=== PATIENT | male | born 1990 | race Two or more races ===

== ENCOUNTER 2021-01-21 18:46 | Inpatient (IN) | payer OTHER ==
[2021-01-21] MEDS ORDERED: NALOXONE (NARCAN) HCL 4 MG/0.1 ML SPRAY NS PRN (21:31)
[2021-01-21] MEDS ORDERED: ACETAMINOPHEN 325 MG TABLET (FP) PO PRN ×2 (21:31)
[2021-01-21] MEDS ORDERED: ONDANSETRON *ODT* 4 MG TABLET SL PRN (21:31)
[2021-01-21] MEDS ORDERED: NALOXONE HCL 0.4 MG/ML VIAL IM PRN (21:31)
[2021-01-21] MEDS ORDERED: P-EPHED 60MG/TRIPROLIDI 2.5MG TABLET PO PRN (21:31)
[2021-01-21] MEDS ORDERED: MAGNESIUM HYDROX 2400MG/30ML ORAL SUSPENSION 30 ML CUP PO PRN (21:31)
[2021-01-21] MEDS ORDERED: BISMUTH SUBSALICYLATE 524 MG/30 ML PO PRN (21:31)
[2021-01-21] MEDS ORDERED: guaiFENesin 200 MG/10 ML 10 ML UNIT-DOSE CUPS PO PRN (21:31)
[2021-01-21] MEDS ORDERED: IBUPROFEN 400 MG TABLET (FP) PO PRN (21:31)
[2021-01-21] MEDS ORDERED: MAG HYDROX/AL HYDROX/SIMETH 30 ML UNIT-DOSE CUP PO PRN (21:31)
[2021-01-21] MEDS ORDERED: MAGNESIUM CITRATE 300 ML BOTTLE PO PRN (21:31)
[2021-01-21] MEDS ORDERED: MENTHOL/PHENOL 1 EACH UD MM PRN (21:31)
[2021-01-21 23:12] VITALS: BMI 23.4
[2021-01-22] MEDS: MELATONIN 5 MG TABLETS PO SCH ×3 (05:14→22:50)
[2021-01-22] MEDS: THIAMINE HCL 100 MG TABLET (FP) PO SCH ×3 (05:15→22:50)
[2021-01-22] MEDS ORDERED: cloNIDine HCL 0.1 MG TABLET PO PRN (09:37)
[2021-01-22] MEDS ORDERED: METHADONE HCL 10 MG TABLET (FOR DETOX USE ONLY) PO ONE (10:00)
[2021-01-22] MEDS: NICOTINE 21 MG/24 HOURS TOPICAL PATCH TD SCH (10:24)
[2021-01-22] MEDS: PRENATAL VITAMINS W/ FOLIC ACID TABLET (FP) PO SCH (10:25)
[2021-01-22 13:37] LABS: HEMATOCRIT 36.6 % (35.4-49); HEMOGLOBIN 12.4 GM/dL (11.7-16.9); MCHC 33.8 g/dl (32.0-35.9); MEAN CELL VOLUME 91.8 fl (80-96); MEAN PLT VOLUME 8.2 fl (7.5-11.1); PLATELET COUNT 311 10^3/uL (134-434); RBC 3.99 M/mm3 (4.00-5.60); RDW 13.6 % (11.9-15.9); WHITE BLOOD COUNT 8.8 K/mm3 (4.0-10.0)
[2021-01-22 13:51] LABS: ALBUMIN 2.8 g/dl (3.4-5.0); BLOOD UREA NITROGEN 19.6 mg/dL (7-18); CREATININE 0.8 mg/dL (0.55-1.3)
[2021-01-22 13:53] LABS: TOT PROT 5.5 g/dl (6.4-8.2)
[2021-01-22 13:56] LABS: CALCIUM 7.9 mg/dL (8.5-10.1)
[2021-01-22 14:04] LABS: BILIRUBIN,TOTAL 0.2 mg/dL (0.2-1)
[2021-01-22] MEDS: diazePAM 5 MG TABLET PO PRN (22:53)
[2021-01-23] MEDS ORDERED: METHADONE HCL 5 MG TABLET (FOR DETOX USE ONLY) ONE (08:57)
[2021-01-23] MEDS ORDERED: METHADONE HCL 10 MG TABLET (FOR DETOX USE ONLY) ONE (08:58)
[2021-01-23] MEDS ORDERED: METHADONE (DETOX) 20 MG, METHADONE (DETOX) 5 MG PO ONE (10:00)
[2021-01-23] MEDS: NICOTINE 21 MG/24 HOURS TOPICAL PATCH TD SCH (10:05)
[2021-01-23] MEDS: PRENATAL VITAMINS W/ FOLIC ACID TABLET (FP) PO SCH (10:05)
[2021-01-23] MEDS: diazePAM 5 MG TABLET PO PRN ×3 (10:06→22:18)
[2021-01-23] MEDS: MELATONIN 5 MG TABLETS PO SCH (22:17)
[2021-01-23] MEDS: THIAMINE HCL 100 MG TABLET (FP) PO SCH (22:18)
[2021-01-23] MEDS: METHOCARBAMOL 500 MG TABLET PO PRN (22:18)
[2021-01-24] MEDS ORDERED: METHADONE HCL 10 MG TABLET (FOR DETOX USE ONLY) PO ONE (10:00)
[2021-01-24] MEDS: NICOTINE 21 MG/24 HOURS TOPICAL PATCH TD SCH (10:15)
[2021-01-24] MEDS: PRENATAL VITAMINS W/ FOLIC ACID TABLET (FP) PO SCH (10:16)
[2021-01-24] MEDS: diazePAM 5 MG TABLET PO PRN ×3 (10:18→22:20)
[2021-01-24] MEDS: METHOCARBAMOL 500 MG TABLET PO PRN ×2 (10:20→22:20)
[2021-01-24] MEDS: MELATONIN 5 MG TABLETS PO SCH (22:20)
[2021-01-24] MEDS: THIAMINE HCL 100 MG TABLET (FP) PO SCH (22:20)
[2021-01-25] MEDS: diazePAM 5 MG TABLET PO PRN ×3 (05:30→22:23)
[2021-01-25] MEDS ORDERED: METHADONE HCL 5 MG TABLET (FOR DETOX USE ONLY) ONE (08:52)
[2021-01-25] MEDS ORDERED: METHADONE HCL 10 MG TABLET (FOR DETOX USE ONLY) ONE (08:52)
[2021-01-25] MEDS ORDERED: METHADONE (DETOX) 10 MG, METHADONE (DETOX) 5 MG PO ONE (10:00)
[2021-01-25] MEDS: PRENATAL VITAMINS W/ FOLIC ACID TABLET (FP) PO SCH (10:13)
[2021-01-25] MEDS: NICOTINE 21 MG/24 HOURS TOPICAL PATCH TD SCH (10:16)
[2021-01-25] MEDS: NICOTINE POLACRILEX 2 MG GUM BUC PRN ×2 (10:18→14:27)
[2021-01-25] MEDS: METHOCARBAMOL 500 MG TABLET PO PRN (10:20)
[2021-01-25] MEDS: hydrOXYzine PAMOATE 50 MG CAPSULE (FP) PO PRN (10:20)
[2021-01-25] MEDS: CALCIUM 500MG/VIT-D 200 UNITS COMBO TABLET (FP) PO SCH ×2 (12:01→22:24)
[2021-01-25] MEDS: THIAMINE HCL 100 MG TABLET (FP) PO SCH (22:24)
[2021-01-25] MEDS: MELATONIN 5 MG TABLETS PO SCH (22:24)
[2021-01-26] MEDS: diazePAM 5 MG TABLET PO PRN ×2 (05:34→10:06)
[2021-01-26] MEDS ORDERED: METHADONE HCL 10 MG TABLET (FOR DETOX USE ONLY) PO ONE (10:00)
[2021-01-26] MEDS: PRENATAL VITAMINS W/ FOLIC ACID TABLET (FP) PO SCH (10:05)
[2021-01-26] MEDS: CALCIUM 500MG/VIT-D 200 UNITS COMBO TABLET (FP) PO SCH ×2 (10:05→22:19)
[2021-01-26] MEDS: NICOTINE 21 MG/24 HOURS TOPICAL PATCH TD SCH (10:05)
[2021-01-26] MEDS: NICOTINE POLACRILEX 2 MG GUM BUC PRN (10:05)
[2021-01-26] MEDS: hydrOXYzine PAMOATE 50 MG CAPSULE (FP) PO PRN ×2 (10:07→22:19)
[2021-01-26] MEDS: THIAMINE HCL 100 MG TABLET (FP) PO SCH (22:19)
[2021-01-26] MEDS: METHOCARBAMOL 500 MG TABLET PO PRN (22:19)
[2021-01-26] MEDS: MELATONIN 5 MG TABLETS PO SCH (22:19)
[2021-01-27] MEDS ORDERED: METHADONE HCL 5 MG TABLET (FOR DETOX USE ONLY) PO ONE (06:00)
[2021-01-27 09:13] VITALS: TEMP 98.1
[2021-01-27] MEDS: NICOTINE 21 MG/24 HOURS TOPICAL PATCH TD SCH (10:33)
[2021-01-27] MEDS: CALCIUM 500MG/VIT-D 200 UNITS COMBO TABLET (FP) PO SCH (10:33)
[2021-01-27] MEDS: PRENATAL VITAMINS W/ FOLIC ACID TABLET (FP) PO SCH (10:33)
[2021-01-27 12:52] VITALS: BP 133/80; PULSE 94
== END 2021-01-27 13:34 | disposition other institution (70) | DRG 773 ==
LOC: YASAS 18:46 → UNDOADMIN 01-22 02:06 → Y6N 01-22 02:06
PROVIDERS: ADMIT Allergy & Immunology; ATTEND Allergy & Immunology
PROC: HZ2ZZZZ Detoxification Services for Substance Abuse Treatment (ICD-10-PCS; principal; 2021-01-22)
DX: F11.23 Opioid dependence with withdrawal (principal); F14.20 Cocaine dependence, uncomplicated; F17.210 Nicotine dependence, cigarettes, uncomplicated; F19.24 Other psychoactive substance dependence with psychoactive substance-induced mood disorder; E83.51 Hypocalcemia; Z56.0 Unemployment, unspecified; Z59.0 Homelessness
CPT/HCPCS: 36415; 80053; 85027; 86780; 93005; 93010; C9803; U0003; U0005

== ENCOUNTER 2021-01-27 13:58 | Inpatient (IN) | payer OTHER ==
[2021-01-27] MEDS ORDERED: IBUPROFEN 400 MG TABLET (FP) PO PRN (15:08)
[2021-01-27] MEDS ORDERED: MAG HYDROX/AL HYDROX/SIMETH 30 ML UNIT-DOSE CUP PO PRN (15:08)
[2021-01-27] MEDS ORDERED: ACETAMINOPHEN 325 MG TABLET (FP) PO PRN (15:08)
[2021-01-27] MEDS ORDERED: MENTHOL/PHENOL 1 EACH UD MM PRN (15:08)
[2021-01-27] MEDS ORDERED: guaiFENesin 200 MG/10 ML 10 ML UNIT-DOSE CUPS PO PRN (15:08)
[2021-01-27] MEDS ORDERED: P-EPHED 60MG/TRIPROLIDI 2.5MG TABLET PO PRN (15:08)
[2021-01-27] MEDS ORDERED: MAGNESIUM CITRATE 300 ML BOTTLE PO PRN (15:08)
[2021-01-27] MEDS ORDERED: LOPERAMIDE HCL 2 MG CAPSULE PO PRN (15:08)
[2021-01-27] MEDS ORDERED: MAGNESIUM HYDROX 2400MG/30ML ORAL SUSPENSION 30 ML CUP PO PRN (15:08)
[2021-01-27] MEDS ORDERED: ONDANSETRON *ODT* 4 MG TABLET SL PRN (15:11)
[2021-01-27] MEDS: hydrOXYzine PAMOATE 50 MG CAPSULE (FP) PO PRN ×2 (15:36→21:09)
[2021-01-27] MEDS: METHOCARBAMOL 500 MG TABLET PO PRN ×2 (15:36→21:09)
[2021-01-27] MEDS: MELATONIN 5 MG TABLETS PO SCH (21:08)
[2021-01-27] MEDS: THIAMINE HCL 100 MG TABLET (FP) PO SCH (21:09)
[2021-01-28] MEDS: NICOTINE 7 MG/24 HOURS TOPICAL PATCH TD SCH (09:24)
[2021-01-28] MEDS: PRENATAL VITAMINS W/ FOLIC ACID TABLET (FP) PO SCH (09:24)
[2021-01-28] MEDS: METHOCARBAMOL 500 MG TABLET PO PRN ×2 (09:25→21:12)
[2021-01-28] MEDS: hydrOXYzine PAMOATE 50 MG CAPSULE (FP) PO PRN ×2 (09:25→21:12)
[2021-01-28] MEDS ORDERED: BUPRENORPHINE/NALOXONE 2 MG/0.5 MG FILM PACKET SL ONE (14:38)
[2021-01-28] MEDS: NICOTINE POLACRILEX 2 MG GUM BUC PRN (20:05)
[2021-01-28] MEDS: THIAMINE HCL 100 MG TABLET (FP) PO SCH (21:10)
[2021-01-28] MEDS: MELATONIN 5 MG TABLETS PO SCH (21:10)
[2021-01-29 06:31] VITALS: BP 117/83; PULSE 74; TEMP 97.3
[2021-01-29] MEDS: NICOTINE POLACRILEX 2 MG GUM BUC PRN ×3 (08:02→16:16)
[2021-01-29] MEDS: PRENATAL VITAMINS W/ FOLIC ACID TABLET (FP) PO SCH (09:27)
[2021-01-29] MEDS: NICOTINE 7 MG/24 HOURS TOPICAL PATCH TD SCH (09:27)
[2021-01-29] MEDS ORDERED: BUPRENORPHINE/NALOXONE 2 MG/0.5 MG FILM PACKET SL SCH (10:00)
[2021-01-29] MEDS ORDERED: BUPRENORPHINE/NALOXONE 2 MG/0.5 MG FILM PACKET SL ONE (10:45)
[2021-01-30] MEDS ORDERED: BUPRENORPHINE/NALOXONE 4 MG/1 MG FILM PACKET SL SCH (10:00)
== END 2021-01-29 19:45 | disposition left against medical advice (07) | DRG 770 ==
LOC: YASAS 13:58 → Y5N 13:59
PROVIDERS: ADMIT Allergy & Immunology; ATTEND Allergy & Immunology
PROC: HZ42ZZZ Group Counseling for Substance Abuse Treatment, Cognitive-Behavioral (ICD-10-PCS; principal; 2021-01-27)
DX: F11.20 Opioid dependence, uncomplicated (principal); Z59.0 Homelessness

== ENCOUNTER 2021-02-07 01:41 | Inpatient (IN) | payer OTHER ==
[2021-02-07 02:15] VITALS: BMI 24.6
[2021-02-07] MEDS ORDERED: MAGNESIUM CITRATE 300 ML BOTTLE PO PRN (02:41)
[2021-02-07] MEDS ORDERED: MAGNESIUM HYDROX 2400MG/30ML ORAL SUSPENSION 30 ML CUP PO PRN (02:41)
[2021-02-07] MEDS ORDERED: NICOTINE POLACRILEX 2 MG GUM BUC PRN (02:41)
[2021-02-07] MEDS ORDERED: ACETAMINOPHEN 325 MG TABLET (FP) PO PRN ×2 (02:41)
[2021-02-07] MEDS ORDERED: MENTHOL/PHENOL 1 EACH UD MM PRN (02:41)
[2021-02-07] MEDS ORDERED: MAG HYDROX/AL HYDROX/SIMETH 30 ML UNIT-DOSE CUP PO PRN (02:41)
[2021-02-07] MEDS ORDERED: IBUPROFEN 400 MG TABLET (FP) PO PRN (02:41)
[2021-02-07] MEDS ORDERED: ONDANSETRON *ODT* 4 MG TABLET SL PRN (02:41)
[2021-02-07] MEDS ORDERED: BISMUTH SUBSALICYLATE 524 MG/30 ML PO PRN (02:41)
[2021-02-07] MEDS: methaDONE HCL 10 MG TABLET (FOR DETOX USE ONLY) PO ONE ×2 (09:02→11:56)
[2021-02-07] MEDS: PRENATAL VITAMINS W/ FOLIC ACID TABLET (FP) PO SCH (11:56)
[2021-02-07 13:10] LABS: HEMATOCRIT 35.5 % (35.4-49); MCH 31.1 pg (25.7-33.7); MCHC 33.9 g/dl (32.0-35.9); MEAN CELL VOLUME 91.9 fl (80-96); MEAN PLT VOLUME 8.5 fl (7.5-11.1); PLATELET COUNT 306 10^3/uL (134-434); RBC 3.86 M/mm3 (4.00-5.60); RDW 13.9 % (11.9-15.9); WHITE BLOOD COUNT 6.7 K/mm3 (4.0-10.0)
[2021-02-07 13:37] LABS: BILIRUBIN,TOTAL 0.2 mg/dL (0.2-1); TOT PROT 6.1 g/dl (6.4-8.2)
[2021-02-07 13:42] LABS: CREATININE 1.1 mg/dL (0.55-1.3)
[2021-02-07 13:48] LABS: BLOOD UREA NITROGEN 21.4 mg/dL (7-18)
[2021-02-07 13:49] LABS: CALCIUM 8.2 mg/dL (8.5-10.1)
[2021-02-07 14:10] LABS: HIV INTERPRETATION NEGATIVE (NEGATIVE)
[2021-02-07] MEDS: THIAMINE HCL 100 MG TABLET (FP) PO SCH (22:49)
[2021-02-07] MEDS: cloNIDine HCL 0.1 MG TABLET PO PRN (22:50)
[2021-02-07] MEDS: MELATONIN 5 MG TABLETS PO SCH (22:50)
[2021-02-08] MEDS ORDERED: methaDONE HCL 10 MG TABLET (FOR DETOX USE ONLY) ONE (10:06)
[2021-02-08] MEDS: PRENATAL VITAMINS W/ FOLIC ACID TABLET (FP) PO SCH (10:07)
[2021-02-08] MEDS: NICOTINE POLACRILEX 4 MG GUM BUC PRN (14:56)
[2021-02-08] MEDS ORDERED: diazePAM 5 MG TABLET PO ONE (15:02)
[2021-02-08] MEDS: cloNIDine HCL 0.1 MG TABLET PO PRN (15:10)
[2021-02-08] MEDS: MELATONIN 5 MG TABLETS PO SCH (22:46)
[2021-02-08] MEDS: THIAMINE HCL 100 MG TABLET (FP) PO SCH (22:46)
[2021-02-09] MEDS: METHOCARBAMOL 500 MG TABLET PO PRN ×3 (01:49→22:14)
[2021-02-09] MEDS: cloNIDine HCL 0.1 MG TABLET PO PRN ×2 (01:49→22:14)
[2021-02-09] MEDS: NICOTINE POLACRILEX 4 MG GUM BUC PRN ×3 (07:58→17:33)
[2021-02-09] MEDS ORDERED: methaDONE HCL 10 MG TABLET (FOR DETOX USE ONLY) PO ONE (10:00)
[2021-02-09] MEDS: PRENATAL VITAMINS W/ FOLIC ACID TABLET (FP) PO SCH (10:00)
[2021-02-09] MEDS: THIAMINE HCL 100 MG TABLET (FP) PO SCH (22:13)
[2021-02-09] MEDS: MELATONIN 5 MG TABLETS PO SCH (22:14)
[2021-02-10] MEDS: NICOTINE POLACRILEX 4 MG GUM BUC PRN ×3 (05:50→22:31)
[2021-02-10] MEDS: METHOCARBAMOL 500 MG TABLET PO PRN ×2 (05:50→22:30)
[2021-02-10] MEDS ORDERED: methaDONE HCL 10 MG TABLET (FOR DETOX USE ONLY) ONE (09:27)
[2021-02-10] MEDS: PRENATAL VITAMINS W/ FOLIC ACID TABLET (FP) PO SCH (10:03)
[2021-02-10] MEDS: diazePAM 5 MG TABLET PO PRN ×2 (14:16→22:31)
[2021-02-10] MEDS: MELATONIN 5 MG TABLETS PO SCH (22:31)
[2021-02-10] MEDS: THIAMINE HCL 100 MG TABLET (FP) PO SCH (22:31)
[2021-02-11] MEDS: NICOTINE POLACRILEX 4 MG GUM BUC PRN ×3 (08:36→21:01)
[2021-02-11] MEDS ORDERED: methaDONE HCL 10 MG TABLET (FOR DETOX USE ONLY) PO ONE (10:00)
[2021-02-11] MEDS: PRENATAL VITAMINS W/ FOLIC ACID TABLET (FP) PO SCH (10:02)
[2021-02-11] MEDS: METHOCARBAMOL 500 MG TABLET PO PRN ×2 (10:03→22:07)
[2021-02-11] MEDS: THIAMINE HCL 100 MG TABLET (FP) PO SCH (22:05)
[2021-02-11] MEDS: MELATONIN 5 MG TABLETS PO SCH (22:06)
[2021-02-12] MEDS: NICOTINE POLACRILEX 4 MG GUM BUC PRN (06:49)
[2021-02-12] MEDS ORDERED: cloNIDine HCL 0.1 MG TABLET PO PRN (08:36)
[2021-02-12 09:15] VITALS: PULSE 87
[2021-02-12] MEDS: PRENATAL VITAMINS W/ FOLIC ACID TABLET (FP) PO SCH (10:03)
[2021-02-12] MEDS: METHOCARBAMOL 500 MG TABLET PO PRN (10:04)
[2021-02-12 13:44] VITALS: BP 148/73
[2021-02-12 17:37] VITALS: TEMP 98.1
== END 2021-02-12 18:35 | disposition home or self-care (01) | DRG 773 ==
LOC: YASAS 01:41 → Y6N 10:52
PROVIDERS: ADMIT Allergy & Immunology; ATTEND Allergy & Immunology
PROC: HZ2ZZZZ Detoxification Services for Substance Abuse Treatment (ICD-10-PCS; principal; 2021-02-07)
DX: F11.23 Opioid dependence with withdrawal (principal); F14.20 Cocaine dependence, uncomplicated; F17.210 Nicotine dependence, cigarettes, uncomplicated; R79.89 Other specified abnormal findings of blood chemistry
CPT/HCPCS: 36415; 80053; 85027; 86780; 87389; C9803; J0735; U0003; U0005

== ENCOUNTER 2021-02-26 16:56 | Inpatient (IN) | payer OTHER ==
[2021-02-27] MEDS ORDERED: BISMUTH SUBSALICYLATE 524 MG/30 ML PO PRN (02:03)
[2021-02-27] MEDS ORDERED: ACETAMINOPHEN 325 MG TABLET (FP) PO PRN ×2 (02:03)
[2021-02-27] MEDS ORDERED: IBUPROFEN 400 MG TABLET (FP) PO PRN (02:03)
[2021-02-27] MEDS ORDERED: ONDANSETRON *ODT* 4 MG TABLET SL PRN (02:03)
[2021-02-27] MEDS ORDERED: NICOTINE POLACRILEX 2 MG GUM BUC PRN (02:03)
[2021-02-27] MEDS ORDERED: MENTHOL/PHENOL 1 EACH UD MM PRN (02:03)
[2021-02-27] MEDS ORDERED: MAGNESIUM CITRATE 300 ML BOTTLE PO PRN (02:03)
[2021-02-27] MEDS ORDERED: MAG HYDROX/AL HYDROX/SIMETH 30 ML UNIT-DOSE CUP PO PRN (02:03)
[2021-02-27] MEDS ORDERED: MAGNESIUM HYDROX 2400MG/30ML ORAL SUSPENSION 30 ML CUP PO PRN (02:03)
[2021-02-27 03:11] VITALS: BMI 24.3
[2021-02-27] MEDS ORDERED: methaDONE HCL 10 MG TABLET (FOR DETOX USE ONLY) PO ONE (08:20)
[2021-02-27] MEDS: NICOTINE 21 MG/24 HOURS TOPICAL PATCH TD SCH (09:35)
[2021-02-27] MEDS ORDERED: methaDONE HCL 10 MG TABLET (FOR DETOX USE ONLY) ONE (09:43)
[2021-02-27] MEDS ORDERED: METHOCARBAMOL 500 MG TABLET ONE (09:43)
[2021-02-27] MEDS ORDERED: hydrOXYzine PAMOATE 25 MG CAPSULE (FP) PO ONE (09:44)
[2021-02-27] MEDS: METHOCARBAMOL 500 MG TABLET PO PRN (09:48)
[2021-02-27] MEDS: hydrOXYzine PAMOATE 25 MG CAPSULE (FP) PO PRN (09:48)
[2021-02-27] MEDS: PRENATAL VITAMINS W/ FOLIC ACID TABLET (FP) PO SCH (09:52)
[2021-02-27 10:50] LABS: HEMATOCRIT 36.8 % (35.4-49); HEMOGLOBIN 12.5 GM/dL (11.7-16.9); MCH 31.4 pg (25.7-33.7); MCHC 33.9 g/dl (32.0-35.9); MEAN CELL VOLUME 92.6 fl (80-96); PLATELET COUNT 283 10^3/uL (134-434); RBC 3.97 M/mm3 (4.00-5.60); RDW 13.1 % (11.9-15.9); WHITE BLOOD COUNT 6.7 K/mm3 (4.0-10.0)
[2021-02-27 11:12] LABS: BLOOD UREA NITROGEN 34.3 mg/dL (7-18)
[2021-02-27 11:13] LABS: CALCIUM 8.5 mg/dL (8.5-10.1)
[2021-02-27 11:14] LABS: ALBUMIN 3.2 g/dl (3.4-5.0)
[2021-02-27 11:17] LABS: CREATININE 1.3 mg/dL (0.55-1.3)
[2021-02-27 11:18] LABS: BILIRUBIN,TOTAL 0.2 mg/dL (0.2-1); TOT PROT 6.1 g/dl (6.4-8.2)
[2021-02-27] MEDS: NICOTINE POLACRILEX 4 MG GUM BUC PRN (14:48)
[2021-02-27] MEDS: THIAMINE HCL 100 MG TABLET (FP) PO SCH (23:55)
[2021-02-27] MEDS: MELATONIN 5 MG TABLETS PO SCH (23:55)
[2021-02-28] MEDS: cloNIDine HCL 0.1 MG TABLET PO PRN ×2 (07:38→22:18)
[2021-02-28] MEDS ORDERED: methaDONE HCL 10 MG TABLET (FOR DETOX USE ONLY) ONE (09:07)
[2021-02-28 10:14] LABS: BLOOD UREA NITROGEN 20.2 mg/dL (7-18)
[2021-02-28] MEDS: PRENATAL VITAMINS W/ FOLIC ACID TABLET (FP) PO SCH (10:24)
[2021-02-28] MEDS: NICOTINE 21 MG/24 HOURS TOPICAL PATCH TD SCH (10:24)
[2021-02-28] MEDS: METHOCARBAMOL 500 MG TABLET PO PRN ×2 (10:25→17:37)
[2021-02-28] MEDS: NICOTINE POLACRILEX 4 MG GUM BUC PRN ×2 (13:50→17:37)
[2021-02-28] MEDS: THIAMINE HCL 100 MG TABLET (FP) PO SCH (22:18)
[2021-02-28] MEDS: hydrOXYzine PAMOATE 25 MG CAPSULE (FP) PO PRN (22:18)
[2021-02-28] MEDS: MELATONIN 5 MG TABLETS PO SCH (22:18)
[2021-03-01] MEDS ORDERED: diazePAM 5 MG TABLET PO ONE (10:00)
[2021-03-01] MEDS ORDERED: methaDONE HCL 10 MG TABLET (FOR DETOX USE ONLY) PO ONE (10:00)
[2021-03-01] MEDS: NICOTINE 21 MG/24 HOURS TOPICAL PATCH TD SCH (10:02)
[2021-03-01] MEDS: METHOCARBAMOL 500 MG TABLET PO PRN (10:02)
[2021-03-01] MEDS: PRENATAL VITAMINS W/ FOLIC ACID TABLET (FP) PO SCH (10:02)
[2021-03-01] MEDS: THIAMINE HCL 100 MG TABLET (FP) PO SCH (22:24)
[2021-03-01] MEDS: hydrOXYzine PAMOATE 25 MG CAPSULE (FP) PO PRN (22:24)
[2021-03-01] MEDS: MELATONIN 5 MG TABLETS PO SCH (22:24)
[2021-03-01] MEDS: cloNIDine HCL 0.1 MG TABLET PO PRN (22:25)
[2021-03-02] MEDS: NICOTINE POLACRILEX 4 MG GUM BUC PRN ×3 (06:00→17:24)
[2021-03-02] MEDS ORDERED: methaDONE HCL 10 MG TABLET (FOR DETOX USE ONLY) ONE (08:46)
[2021-03-02] MEDS: NICOTINE 21 MG/24 HOURS TOPICAL PATCH TD SCH (10:03)
[2021-03-02] MEDS: PRENATAL VITAMINS W/ FOLIC ACID TABLET (FP) PO SCH (10:04)
[2021-03-02] MEDS: METHOCARBAMOL 500 MG TABLET PO PRN (10:04)
[2021-03-02] MEDS: METHYL SALICYLATE/MENTHOL OINT 30 GM TUBE TP SCH (22:04)
[2021-03-02] MEDS: MELATONIN 5 MG TABLETS PO SCH (22:04)
[2021-03-02] MEDS: hydrOXYzine PAMOATE 25 MG CAPSULE (FP) PO PRN (22:06)
[2021-03-02] MEDS: THIAMINE HCL 100 MG TABLET (FP) PO SCH (22:06)
[2021-03-03] MEDS ORDERED: methaDONE HCL 10 MG TABLET (FOR DETOX USE ONLY) PO ONE (10:00)
[2021-03-03] MEDS: METHOCARBAMOL 500 MG TABLET PO PRN ×2 (10:05→22:06)
[2021-03-03] MEDS: PRENATAL VITAMINS W/ FOLIC ACID TABLET (FP) PO SCH (10:05)
[2021-03-03] MEDS: hydrOXYzine PAMOATE 25 MG CAPSULE (FP) PO PRN ×2 (10:05→22:04)
[2021-03-03] MEDS: METHYL SALICYLATE/MENTHOL OINT 30 GM TUBE TP SCH ×2 (10:07→22:44)
[2021-03-03] MEDS: NICOTINE 21 MG/24 HOURS TOPICAL PATCH TD SCH (10:08)
[2021-03-03] MEDS: NICOTINE POLACRILEX 4 MG GUM BUC PRN ×3 (10:09→19:27)
[2021-03-03] MEDS ORDERED: diazePAM 5 MG TABLET PO ONE (14:00)
[2021-03-03] MEDS: NICOTINE 10 MG CARTRIDGE (INHALER) IH PRN (15:44)
[2021-03-03] MEDS: THIAMINE HCL 100 MG TABLET (FP) PO SCH (22:03)
[2021-03-03] MEDS: MELATONIN 5 MG TABLETS PO SCH (22:04)
[2021-03-04] MEDS: NICOTINE 10 MG CARTRIDGE (INHALER) IH PRN (05:54)
[2021-03-04 09:15] VITALS: BP 151/79; PULSE 80; TEMP 98.6
[2021-03-04] MEDS: METHYL SALICYLATE/MENTHOL OINT 30 GM TUBE TP SCH (11:18)
[2021-03-04] MEDS: NICOTINE 21 MG/24 HOURS TOPICAL PATCH TD SCH (11:18)
[2021-03-04] MEDS: PRENATAL VITAMINS W/ FOLIC ACID TABLET (FP) PO SCH (11:18)
== END 2021-03-04 11:15 | disposition home or self-care (01) | DRG 773 ==
LOC: YASAS 16:56 → Y6N 02-27 11:02
PROVIDERS: ADMIT Allergy & Immunology; ATTEND Allergy & Immunology
PROC: HZ2ZZZZ Detoxification Services for Substance Abuse Treatment (ICD-10-PCS; principal; 2021-02-27)
DX: F11.23 Opioid dependence with withdrawal (principal); F14.20 Cocaine dependence, uncomplicated; F17.213 Nicotine dependence, cigarettes, with withdrawal; F19.24 Other psychoactive substance dependence with psychoactive substance-induced mood disorder; R79.89 Other specified abnormal findings of blood chemistry
CPT/HCPCS: 36415; 80053; 82565; 84520; 85027; 86780; C9803; J0735; U0003; U0005

== ENCOUNTER 2021-04-26 12:20 | Inpatient (IN) | payer OTHER ==
[2021-04-26] MEDS ORDERED: MAG HYDROX/AL HYDROX/SIMETH 30 ML UNIT-DOSE CUP PO PRN (15:24)
[2021-04-26] MEDS ORDERED: MAGNESIUM CITRATE 300 ML BOTTLE PO PRN (15:24)
[2021-04-26] MEDS ORDERED: IBUPROFEN 400 MG TABLET (FP) PO PRN (15:24)
[2021-04-26] MEDS ORDERED: ACETAMINOPHEN 325 MG TABLET (FP) PO PRN ×2 (15:24)
[2021-04-26] MEDS ORDERED: ONDANSETRON *ODT* 4 MG TABLET SL PRN (15:24)
[2021-04-26] MEDS ORDERED: MENTHOL/PHENOL 1 EACH UD MM PRN (15:24)
[2021-04-26] MEDS ORDERED: MAGNESIUM HYDROX 2400MG/30ML ORAL SUSPENSION 30 ML CUP PO PRN (15:24)
[2021-04-26] MEDS ORDERED: methaDONE HCL 10 MG TABLET (FOR DETOX USE ONLY) PO ONE (15:24)
[2021-04-26] MEDS ORDERED: BISMUTH SUBSALICYLATE 524 MG/30 ML PO PRN (15:24)
[2021-04-26 16:45] VITALS: BMI 23.8
[2021-04-26] MEDS: hydrOXYzine PAMOATE 25 MG CAPSULE (FP) PO SCH ×2 (18:27→23:41)
[2021-04-26] MEDS: diazePAM 5 MG TABLET PO PRN (18:30)
[2021-04-26] MEDS: MELATONIN 5 MG TABLETS PO SCH (23:41)
[2021-04-26] MEDS: THIAMINE HCL 100 MG TABLET (FP) PO SCH (23:41)
[2021-04-27] MEDS: hydrOXYzine PAMOATE 25 MG CAPSULE (FP) PO SCH ×5 (06:02→22:45)
[2021-04-27] MEDS ORDERED: methaDONE HCL 10 MG TABLET (FOR DETOX USE ONLY) ONE (09:02)
[2021-04-27] MEDS: METHOCARBAMOL 500 MG TABLET PO PRN (11:05)
[2021-04-27] MEDS: diazePAM 5 MG TABLET PO PRN ×2 (11:05→22:45)
[2021-04-27] MEDS: cloNIDine HCL 0.1 MG TABLET PO PRN (11:08)
[2021-04-27] MEDS: PRENATAL VITAMINS W/ FOLIC ACID TABLET (FP) PO SCH (11:10)
[2021-04-27] MEDS: NICOTINE POLACRILEX 4 MG GUM BUC PRN ×2 (11:20→22:47)
[2021-04-27 11:57] LABS: HEMATOCRIT 42.7 % (35.4-49); HEMOGLOBIN 14.4 GM/dL (11.7-16.9); MCH 30.8 pg (25.7-33.7); MCHC 33.6 g/dl (32.0-35.9); MEAN CELL VOLUME 91.5 fl (80-96); MEAN PLT VOLUME 8.2 fl (7.5-11.1); PLATELET COUNT 402 10^3/uL (134-434); RBC 4.66 M/mm3 (4.00-5.60); WHITE BLOOD COUNT 12.9 K/mm3 (4.0-10.0)
[2021-04-27 11:59] LABS: CALCIUM 8.9 mg/dL (8.5-10.1)
[2021-04-27 12:00] LABS: BLOOD UREA NITROGEN 12.4 mg/dL (7-18)
[2021-04-27 12:03] LABS: CREATININE 0.9 mg/dL (0.55-1.3)
[2021-04-27 12:05] LABS: BILIRUBIN,TOTAL 0.6 mg/dL (0.2-1); TOT PROT 6.8 g/dl (6.4-8.2)
[2021-04-27] MEDS: THIAMINE HCL 100 MG TABLET (FP) PO SCH (22:45)
[2021-04-27] MEDS: MELATONIN 5 MG TABLETS PO SCH (22:45)
[2021-04-28] MEDS: hydrOXYzine PAMOATE 25 MG CAPSULE (FP) PO SCH ×5 (06:48→22:07)
[2021-04-28] MEDS ORDERED: methaDONE HCL 10 MG TABLET (FOR DETOX USE ONLY) PO ONE (10:00)
[2021-04-28] MEDS: cloNIDine HCL 0.1 MG TABLET PO PRN ×2 (10:24→22:10)
[2021-04-28] MEDS: METHOCARBAMOL 500 MG TABLET PO PRN (10:24)
[2021-04-28] MEDS: PRENATAL VITAMINS W/ FOLIC ACID TABLET (FP) PO SCH (10:24)
[2021-04-28] MEDS: diazePAM 5 MG TABLET PO PRN ×3 (10:25→22:07)
[2021-04-28] MEDS: NICOTINE POLACRILEX 4 MG GUM BUC PRN ×3 (10:29→15:49)
[2021-04-28] MEDS: MELATONIN 5 MG TABLETS PO SCH (22:07)
[2021-04-28] MEDS: THIAMINE HCL 100 MG TABLET (FP) PO SCH (22:07)
[2021-04-29] MEDS: hydrOXYzine PAMOATE 25 MG CAPSULE (FP) PO SCH ×5 (07:09→22:20)
[2021-04-29] MEDS ORDERED: methaDONE HCL 10 MG TABLET (FOR DETOX USE ONLY) ONE (08:54)
[2021-04-29] MEDS: PRENATAL VITAMINS W/ FOLIC ACID TABLET (FP) PO SCH (10:28)
[2021-04-29] MEDS: diazePAM 5 MG TABLET PO PRN ×2 (10:29→14:37)
[2021-04-29] MEDS: METHOCARBAMOL 500 MG TABLET PO PRN ×3 (10:31→23:38)
[2021-04-29] MEDS: NICOTINE 10 MG CARTRIDGE (INHALER) IH PRN ×3 (10:47→21:04)
[2021-04-29] MEDS: NICOTINE POLACRILEX 4 MG GUM BUC PRN ×2 (14:36→17:40)
[2021-04-29] MEDS: MELATONIN 5 MG TABLETS PO SCH (22:20)
[2021-04-29] MEDS: THIAMINE HCL 100 MG TABLET (FP) PO SCH (22:20)
[2021-04-30] MEDS: hydrOXYzine PAMOATE 25 MG CAPSULE (FP) PO SCH ×3 (07:12→13:17)
[2021-04-30 08:58] VITALS: TEMP 96.9
[2021-04-30] MEDS ORDERED: methaDONE HCL 10 MG TABLET (FOR DETOX USE ONLY) PO ONE (10:00)
[2021-04-30] MEDS: PRENATAL VITAMINS W/ FOLIC ACID TABLET (FP) PO SCH (10:16)
[2021-04-30] MEDS: NICOTINE POLACRILEX 4 MG GUM BUC PRN (10:17)
[2021-04-30] MEDS: METHOCARBAMOL 500 MG TABLET PO PRN (10:17)
[2021-04-30 10:32] LABS: HEMATOCRIT 38.1 % (35.4-49); HEMOGLOBIN 13.1 GM/dL (11.7-16.9); MCH 31.6 pg (25.7-33.7); MCHC 34.4 g/dl (32.0-35.9); MEAN PLT VOLUME 8.4 fl (7.5-11.1); PLATELET COUNT 346 10^3/uL (134-434); RBC 4.14 M/mm3 (4.00-5.60); RDW 12.8 % (11.9-15.9); WHITE BLOOD COUNT 8.6 K/mm3 (4.0-10.0)
[2021-04-30] MEDS: NICOTINE 10 MG CARTRIDGE (INHALER) IH PRN (10:40)
[2021-04-30] MEDS ORDERED: diazePAM 5 MG TABLET PO PRN (11:03)
[2021-04-30] MEDS ORDERED: cloNIDine HCL 0.1 MG TABLET PO PRN (12:12)
[2021-04-30 13:32] VITALS: BP 139/84; PULSE 97
== END 2021-04-30 14:12 | disposition home or self-care (01) | DRG 770 ==
LOC: YASAS 12:20 → Y3N 16:22
PROVIDERS: ADMIT Allergy & Immunology; ATTEND Allergy & Immunology
PROC: HZ2ZZZZ Detoxification Services for Substance Abuse Treatment (ICD-10-PCS; principal; 2021-04-26)
DX: F11.23 Opioid dependence with withdrawal (principal); F14.20 Cocaine dependence, uncomplicated; F17.213 Nicotine dependence, cigarettes, with withdrawal; Z63.4 Disappearance and death of family member
CPT/HCPCS: 36415; 80053; 82947; 85027; 86780; C9803; J0735; U0003; U0005

== ENCOUNTER 2021-05-11 22:26 | Inpatient (IN) | payer OTHER ==
[2021-05-11 22:43] VITALS: BMI 22.4
[2021-05-12] MEDS ORDERED: MENTHOL/PHENOL 1 EACH UD MM PRN (00:14)
[2021-05-12] MEDS ORDERED: MAG HYDROX/AL HYDROX/SIMETH 30 ML UNIT-DOSE CUP PO PRN (00:14)
[2021-05-12] MEDS ORDERED: ONDANSETRON *ODT* 4 MG TABLET SL PRN (00:14)
[2021-05-12] MEDS ORDERED: MAGNESIUM HYDROX 2400MG/30ML ORAL SUSPENSION 30 ML CUP PO PRN (00:14)
[2021-05-12] MEDS ORDERED: BISMUTH SUBSALICYLATE 524 MG/30 ML PO PRN (00:14)
[2021-05-12] MEDS ORDERED: MAGNESIUM CITRATE 300 ML BOTTLE PO PRN (00:14)
[2021-05-12] MEDS ORDERED: ACETAMINOPHEN 325 MG TABLET (FP) PO PRN ×2 (00:14)
[2021-05-12] MEDS ORDERED: IBUPROFEN 400 MG TABLET (FP) PO PRN (00:14)
[2021-05-12] MEDS ORDERED: methaDONE HCL 10 MG TABLET (FOR DETOX USE ONLY) PO ONE (00:21)
[2021-05-12] MEDS: cloNIDine HCL 0.1 MG TABLET PO PRN ×3 (01:24→22:16)
[2021-05-12] MEDS: METHOCARBAMOL 500 MG TABLET PO PRN ×2 (05:21→22:17)
[2021-05-12] MEDS: PRENATAL VITAMINS W/ FOLIC ACID TABLET (FP) PO SCH (10:27)
[2021-05-12] MEDS: diazePAM 5 MG TABLET PO PRN ×2 (10:28→18:56)
[2021-05-12] MEDS: NICOTINE POLACRILEX 2 MG GUM BUC PRN ×2 (10:30→22:24)
[2021-05-12 14:15] LABS: HEMATOCRIT 39.4 % (35.4-49); HEMOGLOBIN 13.3 GM/dL (11.7-16.9); MCHC 33.7 g/dl (32.0-35.9); MEAN CELL VOLUME 91.8 fl (80-96); MEAN PLT VOLUME 9.4 fl (7.5-11.1); PLATELET COUNT 300 10^3/uL (134-434); RBC 4.29 M/mm3 (4.00-5.60); RDW 13.1 % (11.9-15.9); WHITE BLOOD COUNT 7.8 K/mm3 (4.0-10.0)
[2021-05-12 15:27] LABS: HIV INTERPRETATION NEGATIVE (NEGATIVE)
[2021-05-12] MEDS: MELATONIN 5 MG TABLETS PO SCH (22:15)
[2021-05-12] MEDS: THIAMINE HCL 100 MG TABLET (FP) PO SCH (22:15)
[2021-05-13] MEDS ORDERED: methaDONE HCL 10 MG TABLET (FOR DETOX USE ONLY) ONE (08:18)
[2021-05-13] MEDS: diazePAM 5 MG TABLET PO PRN ×3 (08:28→22:06)
[2021-05-13] MEDS: cloNIDine HCL 0.1 MG TABLET PO PRN ×2 (08:29→22:06)
[2021-05-13] MEDS: PRENATAL VITAMINS W/ FOLIC ACID TABLET (FP) PO SCH (10:20)
[2021-05-13] MEDS: NICOTINE 10 MG CARTRIDGE (INHALER) IH PRN ×2 (10:31→22:04)
[2021-05-13 10:57] LABS: CALCIUM 8.1 mg/dL (8.5-10.1)
[2021-05-13 10:58] LABS: ALBUMIN 2.8 g/dl (3.4-5.0)
[2021-05-13 11:01] LABS: CREATININE 0.9 mg/dL (0.55-1.3)
[2021-05-13 11:03] LABS: BILIRUBIN,TOTAL 0.2 mg/dL (0.2-1); TOT PROT 6.4 g/dl (6.4-8.2)
[2021-05-13] MEDS: MELATONIN 5 MG TABLETS PO SCH (22:02)
[2021-05-13] MEDS: THIAMINE HCL 100 MG TABLET (FP) PO SCH (22:02)
[2021-05-13] MEDS: METHOCARBAMOL 500 MG TABLET PO PRN (22:06)
[2021-05-13] MEDS: NICOTINE POLACRILEX 2 MG GUM BUC PRN (22:10)
[2021-05-14] MEDS: diazePAM 5 MG TABLET PO PRN ×4 (08:35→22:04)
[2021-05-14] MEDS: NICOTINE POLACRILEX 2 MG GUM BUC PRN ×4 (08:37→22:22)
[2021-05-14] MEDS ORDERED: methaDONE HCL 10 MG TABLET (FOR DETOX USE ONLY) PO ONE (10:00)
[2021-05-14] MEDS: METHOCARBAMOL 500 MG TABLET PO PRN ×2 (10:06→22:04)
[2021-05-14] MEDS: PRENATAL VITAMINS W/ FOLIC ACID TABLET (FP) PO SCH (10:06)
[2021-05-14] MEDS: cloNIDine HCL 0.1 MG TABLET PO PRN ×3 (10:06→22:07)
[2021-05-14] MEDS: NICOTINE 10 MG CARTRIDGE (INHALER) IH PRN ×2 (10:08→16:33)
[2021-05-14 18:15] LABS: HEMATOCRIT 39.3 % (35.4-49); HEMOGLOBIN 13.2 GM/dL (11.7-16.9); MCH 30.5 pg (25.7-33.7); MCHC 33.6 g/dl (32.0-35.9); MEAN CELL VOLUME 90.6 fl (80-96); PLATELET COUNT 360 10^3/uL (134-434); RBC 4.34 M/mm3 (4.00-5.60); RDW 13.1 % (11.9-15.9); WHITE BLOOD COUNT 8.2 K/mm3 (4.0-10.0)
[2021-05-14] MEDS: THIAMINE HCL 100 MG TABLET (FP) PO SCH (22:04)
[2021-05-14] MEDS: MELATONIN 5 MG TABLETS PO SCH (22:04)
[2021-05-15] MEDS ORDERED: methaDONE HCL 10 MG TABLET (FOR DETOX USE ONLY) ONE (08:47)
[2021-05-15] MEDS: NICOTINE 10 MG CARTRIDGE (INHALER) IH PRN ×4 (09:04→22:09)
[2021-05-15] MEDS: PRENATAL VITAMINS W/ FOLIC ACID TABLET (FP) PO SCH (10:03)
[2021-05-15] MEDS: METHOCARBAMOL 500 MG TABLET PO PRN ×2 (10:03→22:08)
[2021-05-15] MEDS: NICOTINE POLACRILEX 2 MG GUM BUC PRN ×3 (10:05→20:08)
[2021-05-15] MEDS: cloNIDine HCL 0.1 MG TABLET PO PRN (17:17)
[2021-05-15] MEDS: THIAMINE HCL 100 MG TABLET (FP) PO SCH (22:07)
[2021-05-15] MEDS: MELATONIN 5 MG TABLETS PO SCH (22:07)
[2021-05-15] MEDS: traZODone HCL 50 MG TABLET (FP) PO SCH (22:07)
[2021-05-16] MEDS: NICOTINE POLACRILEX 2 MG GUM BUC PRN ×2 (08:45→13:10)
[2021-05-16] MEDS ORDERED: methaDONE HCL 10 MG TABLET (FOR DETOX USE ONLY) PO ONE (10:00)
[2021-05-16] MEDS: PRENATAL VITAMINS W/ FOLIC ACID TABLET (FP) PO SCH (10:04)
[2021-05-16] MEDS: NICOTINE 10 MG CARTRIDGE (INHALER) IH PRN ×2 (10:05→22:02)
[2021-05-16] MEDS: cloNIDine HCL 0.1 MG TABLET PO PRN (17:33)
[2021-05-16] MEDS: THIAMINE HCL 100 MG TABLET (FP) PO SCH (22:01)
[2021-05-16] MEDS: METHOCARBAMOL 500 MG TABLET PO PRN (22:01)
[2021-05-16] MEDS: MELATONIN 5 MG TABLETS PO SCH (22:01)
[2021-05-16] MEDS: traZODone HCL 50 MG TABLET (FP) PO SCH (22:01)
[2021-05-17] MEDS: METHOCARBAMOL 500 MG TABLET PO PRN (06:18)
[2021-05-17 09:42] VITALS: BP 129/72; PULSE 73; TEMP 97.3
== END 2021-05-17 09:33 | disposition home or self-care (01) | DRG 773 ==
LOC: YASAS 22:26 → Y3N 05-12 00:49
PROVIDERS: ADMIT Allergy & Immunology; ATTEND Allergy & Immunology
PROC: HZ2ZZZZ Detoxification Services for Substance Abuse Treatment (ICD-10-PCS; principal; 2021-05-12)
DX: F11.23 Opioid dependence with withdrawal (principal); F14.20 Cocaine dependence, uncomplicated; F17.210 Nicotine dependence, cigarettes, uncomplicated; F19.280 Other psychoactive substance dependence with psychoactive substance-induced anxiety disorder; F19.282 Other psychoactive substance dependence with psychoactive substance-induced sleep disorder; Z62.810 Personal history of physical and sexual abuse in childhood; Z91.410 Personal history of adult physical and sexual abuse; Z56.0 Unemployment, unspecified
CPT/HCPCS: 36415; 80053; 85027; 86780; 86803; 87389; C9803; J0735; U0003; U0005

== ENCOUNTER 2021-08-16 10:39 | Inpatient (IN) | payer OTHER ==
[2021-08-16] MEDS ORDERED: MAGNESIUM CITRATE 300 ML BOTTLE PO PRN (11:55)
[2021-08-16] MEDS ORDERED: BISMUTH SUBSALICYLATE 524 MG/30 ML PO PRN (11:55)
[2021-08-16] MEDS ORDERED: MAGNESIUM HYDROX 2400MG/30ML ORAL SUSPENSION 30 ML CUP PO PRN (11:55)
[2021-08-16] MEDS ORDERED: methaDONE HCL 10 MG TABLET (FOR DETOX USE ONLY) PO ONE (11:55)
[2021-08-16] MEDS ORDERED: MENTHOL/PHENOL 1 EACH UD MM PRN (11:55)
[2021-08-16] MEDS ORDERED: IBUPROFEN 400 MG TABLET (FP) PO PRN (11:55)
[2021-08-16] MEDS ORDERED: ONDANSETRON *ODT* 4 MG TABLET SL PRN (11:55)
[2021-08-16] MEDS ORDERED: ACETAMINOPHEN 325 MG TABLET (FP) PO PRN ×2 (11:55)
[2021-08-16] MEDS ORDERED: MAG HYDROX/AL HYDROX/SIMETH 30 ML UNIT-DOSE CUP PO PRN (11:55)
[2021-08-16] MEDS: METHOCARBAMOL 500 MG TABLET PO PRN (13:32)
[2021-08-16] MEDS: diazePAM 5 MG TABLET PO PRN (13:33)
[2021-08-16 13:50] VITALS: BMI 22.1
[2021-08-16] MEDS: NICOTINE 10 MG CARTRIDGE (INHALER) IH PRN (19:19)
[2021-08-16] MEDS: MELATONIN 5 MG TABLETS PO SCH (23:03)
[2021-08-16] MEDS: THIAMINE HCL 100 MG TABLET (FP) PO SCH (23:03)
[2021-08-16] MEDS: cloNIDine HCL 0.1 MG TABLET PO PRN (23:03)
[2021-08-17] MEDS ORDERED: methaDONE HCL 10 MG TABLET (FOR DETOX USE ONLY) ONE (09:09)
[2021-08-17] MEDS: diazePAM 5 MG TABLET PO PRN ×3 (10:57→21:29)
[2021-08-17] MEDS: PRENATAL VITAMINS W/ FOLIC ACID TABLET (FP) PO SCH (10:57)
[2021-08-17] MEDS: METHOCARBAMOL 500 MG TABLET PO PRN ×2 (10:57→21:26)
[2021-08-17] MEDS: NICOTINE POLACRILEX 2 MG GUM BUC PRN (13:54)
[2021-08-17] MEDS: THIAMINE HCL 100 MG TABLET (FP) PO SCH (21:26)
[2021-08-17] MEDS: MELATONIN 5 MG TABLETS PO SCH (21:26)
[2021-08-18] MEDS ORDERED: methaDONE HCL 10 MG TABLET (FOR DETOX USE ONLY) PO ONE (10:00)
[2021-08-18] MEDS: METHOCARBAMOL 500 MG TABLET PO PRN ×2 (10:08→21:53)
[2021-08-18] MEDS: hydrOXYzine PAMOATE 25 MG CAPSULE (FP) PO PRN (10:08)
[2021-08-18] MEDS: diazePAM 5 MG TABLET PO PRN ×2 (10:09→21:52)
[2021-08-18] MEDS: PRENATAL VITAMINS W/ FOLIC ACID TABLET (FP) PO SCH (10:10)
[2021-08-18] MEDS: NICOTINE 10 MG CARTRIDGE (INHALER) IH PRN (11:53)
[2021-08-18] MEDS: NICOTINE POLACRILEX 2 MG GUM BUC PRN ×2 (11:53→22:22)
[2021-08-18] MEDS: cloNIDine HCL 0.1 MG TABLET PO PRN (14:31)
[2021-08-18] MEDS ORDERED: diazePAM 5 MG TABLET PO ONE (16:00)
[2021-08-18] MEDS: THIAMINE HCL 100 MG TABLET (FP) PO SCH (21:52)
[2021-08-18] MEDS: MELATONIN 5 MG TABLETS PO SCH (21:52)
[2021-08-19] MEDS: diazePAM 5 MG TABLET PO PRN (06:10)
[2021-08-19] MEDS: NICOTINE POLACRILEX 2 MG GUM BUC PRN ×3 (06:11→14:09)
[2021-08-19] MEDS ORDERED: methaDONE HCL 10 MG TABLET (FOR DETOX USE ONLY) ONE (09:42)
[2021-08-19] MEDS: PRENATAL VITAMINS W/ FOLIC ACID TABLET (FP) PO SCH (10:03)
[2021-08-19] MEDS: hydrOXYzine PAMOATE 25 MG CAPSULE (FP) PO PRN ×2 (10:03→12:06)
[2021-08-19] MEDS: METHOCARBAMOL 500 MG TABLET PO PRN (10:03)
[2021-08-19] MEDS: NICOTINE 10 MG CARTRIDGE (INHALER) IH PRN ×2 (10:04→14:06)
[2021-08-19 13:27] LABS: HEMATOCRIT 43.6 % (35.4-49); HEMOGLOBIN 14.5 GM/dL (11.7-16.9); MCH 30.7 pg (25.7-33.7); MCHC 33.4 g/dl (32.0-35.9); MEAN CELL VOLUME 91.9 fl (80-96); MEAN PLT VOLUME 7.9 fl (7.5-11.1); PLATELET COUNT 313 10^3/uL (134-434); RBC 4.74 M/mm3 (4.00-5.60); RDW 13.7 % (11.9-15.9); WHITE BLOOD COUNT 7.8 K/mm3 (4.0-10.0)
[2021-08-19 13:38] LABS: ALBUMIN 3.1 g/dl (3.4-5.0); CALCIUM 9.2 mg/dL (8.5-10.1)
[2021-08-19 13:41] LABS: CREATININE 0.9 mg/dL (0.55-1.3); TOT PROT 6.6 g/dl (6.4-8.2)
[2021-08-19 13:42] LABS: BILIRUBIN,TOTAL 0.3 mg/dL (0.2-1)
[2021-08-19 18:51] VITALS: BP 153/104; PULSE 103; TEMP 97.6
[2021-08-20] MEDS ORDERED: methaDONE HCL 10 MG TABLET (FOR DETOX USE ONLY) PO ONE (10:00)
== END 2021-08-19 18:20 | disposition left against medical advice (07) | DRG 770 ==
LOC: YASAS 10:39 → Y6N 12:43
PROVIDERS: ADMIT Allergy & Immunology; ATTEND Allergy & Immunology
PROC: HZ2ZZZZ Detoxification Services for Substance Abuse Treatment (ICD-10-PCS; principal; 2021-08-16)
DX: F11.23 Opioid dependence with withdrawal (principal); F14.20 Cocaine dependence, uncomplicated; F17.210 Nicotine dependence, cigarettes, uncomplicated; U07.1 COVID-19; W19.XXXA Unspecified fall, initial encounter; Y92.238 Other place in hospital as the place of occurrence of the external cause
CPT/HCPCS: 36415; 80053; 85027; 86780; 93005; 93010; C9803; J0735; U0003; U0005

== ENCOUNTER 2021-09-08 09:04 | Inpatient (IN) | payer OTHER ==
[2021-09-08 09:51] VITALS: BMI 24.1
[2021-09-08] MEDS ORDERED: ACETAMINOPHEN 325 MG TABLET (FP) PO PRN ×2 (09:57)
[2021-09-08] MEDS ORDERED: MAGNESIUM HYDROX 2400MG/30ML ORAL SUSPENSION 30 ML CUP PO PRN (09:57)
[2021-09-08] MEDS ORDERED: MAG HYDROX/AL HYDROX/SIMETH 30 ML UNIT-DOSE CUP PO PRN (09:57)
[2021-09-08] MEDS ORDERED: MENTHOL/PHENOL 1 EACH UD MM PRN (09:57)
[2021-09-08] MEDS ORDERED: cloNIDine HCL 0.1 MG TABLET PO ONE (09:57)
[2021-09-08] MEDS ORDERED: MAGNESIUM CITRATE 300 ML BOTTLE PO PRN (09:57)
[2021-09-08] MEDS ORDERED: IBUPROFEN 400 MG TABLET (FP) PO PRN (09:57)
[2021-09-08] MEDS ORDERED: ONDANSETRON *ODT* 4 MG TABLET SL PRN (09:57)
[2021-09-08] MEDS ORDERED: BUPRENORPHINE HCL 150 MCG FILM BC ONE (10:22)
[2021-09-08] MEDS ORDERED: BUPRENORPHINE HCL 75 MCG FILM BC ONE (10:22)
[2021-09-08] MEDS ORDERED: BUPRENORPHINE HCL 150 MCG, BUPRENORPHINE HCL 75 MCG BC ONE (10:30)
[2021-09-08] MEDS ORDERED: cloNIDine HCL 0.1 MG TABLET ONE (10:30)
[2021-09-08] MEDS: PRENATAL VITAMINS W/ FOLIC ACID TABLET (FP) PO SCH (10:34)
[2021-09-08] MEDS: hydrOXYzine PAMOATE 25 MG CAPSULE (FP) PO SCH ×4 (10:34→22:57)
[2021-09-08] MEDS ORDERED: METHOCARBAMOL 500 MG TABLET ONE (10:36)
[2021-09-08] MEDS ORDERED: hydrOXYzine PAMOATE 25 MG CAPSULE (FP) PO ONE (10:36)
[2021-09-08] MEDS: NICOTINE 14 MG/24 HOURS TOPICAL PATCH TD SCH (10:39)
[2021-09-08] MEDS: METHOCARBAMOL 500 MG TABLET PO PRN ×2 (10:39→22:57)
[2021-09-08 14:01] LABS: HEMATOCRIT 39.7 % (35.4-49); HEMOGLOBIN 13.7 GM/dL (11.7-16.9); MCHC 34.4 g/dl (32.0-35.9); MEAN CELL VOLUME 90.1 fl (80-96); MEAN PLT VOLUME 7.8 fl (7.5-11.1); PLATELET COUNT 393 10^3/uL (134-434); RBC 4.41 M/mm3 (4.00-5.60); RDW 13.6 % (11.9-15.9); WHITE BLOOD COUNT 10.6 K/mm3 (4.0-10.0)
[2021-09-08] MEDS ORDERED: diazePAM 5 MG TABLET PO SCH (14:30)
[2021-09-08] MEDS: diazePAM 5 MG TABLET PO SCH ×3 (15:40→22:57)
[2021-09-08 18:05] LABS: ALBUMIN 3.7 g/dl (3.4-5.0); CALCIUM 9.6 mg/dL (8.5-10.1)
[2021-09-08] MEDS: BISMUTH SUBSALICYLATE 524 MG/30 ML PO PRN (18:09)
[2021-09-08] MEDS: cloNIDine HCL 0.1 MG TABLET PO PRN (18:09)
[2021-09-08 18:10] LABS: BILIRUBIN,TOTAL 0.2 mg/dL (0.2-1); TOT PROT 7.3 g/dl (6.4-8.2)
[2021-09-08 19:13] LABS: HIV INTERPRETATION NEGATIVE (NEGATIVE)
[2021-09-08] MEDS: MELATONIN 5 MG TABLETS PO SCH (22:57)
[2021-09-08] MEDS: THIAMINE HCL 100 MG TABLET (FP) PO SCH (22:57)
[2021-09-09] MEDS ORDERED: BUPRENORPHINE HCL 150 MCG FILM BC ONE (04:25)
[2021-09-09] MEDS ORDERED: BUPRENORPHINE HCL 75 MCG FILM BC ONE (04:25)
[2021-09-09] MEDS ORDERED: BUPRENORPHINE HCL 150 MCG, BUPRENORPHINE HCL 75 MCG BC SCH (06:00)
[2021-09-09] MEDS: hydrOXYzine PAMOATE 25 MG CAPSULE (FP) PO SCH ×5 (06:06→22:05)
[2021-09-09] MEDS: METHOCARBAMOL 500 MG TABLET PO PRN ×2 (06:06→22:05)
[2021-09-09] MEDS: diazePAM 5 MG TABLET PO SCH ×4 (06:09→22:05)
[2021-09-09] MEDS: cloNIDine HCL 0.1 MG TABLET PO PRN ×2 (06:10→22:05)
[2021-09-09] MEDS ORDERED: methaDONE HCL 10 MG TABLET (FOR DETOX USE ONLY) ONE (09:38)
[2021-09-09] MEDS ORDERED: methaDONE HCL 10 MG TABLET (FOR DETOX USE ONLY) PO ONE (10:00)
[2021-09-09] MEDS: NICOTINE 14 MG/24 HOURS TOPICAL PATCH TD SCH (10:19)
[2021-09-09] MEDS: PRENATAL VITAMINS W/ FOLIC ACID TABLET (FP) PO SCH (10:20)
[2021-09-09] MEDS: MELATONIN 5 MG TABLETS PO SCH (22:04)
[2021-09-09] MEDS: THIAMINE HCL 100 MG TABLET (FP) PO SCH (22:05)
[2021-09-10] MEDS: hydrOXYzine PAMOATE 25 MG CAPSULE (FP) PO SCH ×5 (05:23→22:01)
[2021-09-10] MEDS: diazePAM 5 MG TABLET PO SCH ×3 (05:23→22:01)
[2021-09-10] MEDS ORDERED: BUPRENORPHINE HCL 450 MCG FILM BC SCH (06:00)
[2021-09-10] MEDS: NICOTINE 10 MG CARTRIDGE (INHALER) IH PRN ×3 (08:43→22:00)
[2021-09-10] MEDS ORDERED: methaDONE HCL 10 MG TABLET (FOR DETOX USE ONLY) PO ONE (10:00)
[2021-09-10] MEDS: PRENATAL VITAMINS W/ FOLIC ACID TABLET (FP) PO SCH (10:02)
[2021-09-10] MEDS: NICOTINE 14 MG/24 HOURS TOPICAL PATCH TD SCH (10:03)
[2021-09-10] MEDS: diazePAM 5 MG TABLET PO PRN ×2 (10:07→18:33)
[2021-09-10 10:22] LABS: HEMOGLOBIN 13.3 GM/dL (11.7-16.9); MCH 30.5 pg (25.7-33.7); MCHC 33.4 g/dl (32.0-35.9); MEAN CELL VOLUME 91.3 fl (80-96); MEAN PLT VOLUME 8.1 fl (7.5-11.1); PLATELET COUNT 358 10^3/uL (134-434); RBC 4.38 M/mm3 (4.00-5.60); RDW 13.3 % (11.9-15.9); WHITE BLOOD COUNT 8.4 K/mm3 (4.0-10.0)
[2021-09-10 10:28] LABS: BLOOD UREA NITROGEN 11.9 mg/dL (7-18); CALCIUM 8.4 mg/dL (8.5-10.1)
[2021-09-10 10:31] LABS: CREATININE 0.8 mg/dL (0.55-1.3)
[2021-09-10 10:32] LABS: BILIRUBIN,TOTAL 0.3 mg/dL (0.2-1)
[2021-09-10 10:33] LABS: TOT PROT 6.2 g/dl (6.4-8.2)
[2021-09-10 10:39] LABS: ALBUMIN 2.9 g/dl (3.4-5.0)
[2021-09-10] MEDS: NICOTINE POLACRILEX 4 MG GUM BUC PRN ×2 (13:59→18:34)
[2021-09-10] MEDS: BISMUTH SUBSALICYLATE 524 MG/30 ML PO PRN (18:53)
[2021-09-10] MEDS: MELATONIN 5 MG TABLETS PO SCH (22:00)
[2021-09-10] MEDS: THIAMINE HCL 100 MG TABLET (FP) PO SCH (22:01)
[2021-09-10] MEDS: METHOCARBAMOL 500 MG TABLET PO PRN (22:01)
[2021-09-10] MEDS: cloNIDine HCL 0.1 MG TABLET PO PRN (22:01)
[2021-09-11] MEDS: diazePAM 5 MG TABLET PO SCH ×2 (05:22→17:54)
[2021-09-11] MEDS: hydrOXYzine PAMOATE 25 MG CAPSULE (FP) PO SCH ×5 (05:22→17:55)
[2021-09-11] MEDS ORDERED: BUPRENORPHINE/NALOXONE 4 MG/1 MG FILM PACKET SL SCH (06:00)
[2021-09-11] MEDS: NICOTINE POLACRILEX 4 MG GUM BUC PRN ×4 (08:47→17:55)
[2021-09-11] MEDS: NICOTINE 10 MG CARTRIDGE (INHALER) IH PRN ×2 (09:22→13:56)
[2021-09-11] MEDS: PRENATAL VITAMINS W/ FOLIC ACID TABLET (FP) PO SCH (09:59)
[2021-09-11] MEDS: diazePAM 5 MG TABLET PO PRN ×2 (10:00→13:55)
[2021-09-11] MEDS: METHOCARBAMOL 500 MG TABLET PO PRN (10:01)
[2021-09-11] MEDS: NICOTINE 14 MG/24 HOURS TOPICAL PATCH TD SCH (11:35)
[2021-09-11 17:28] VITALS: BP 107/60; PULSE 93; TEMP 97.8
[2021-09-12] MEDS ORDERED: diazePAM 5 MG TABLET PO ONE (06:00)
[2021-09-12] MEDS ORDERED: BUPRENORPHINE/NALOXONE 8 MG/2 MG FILM PACKET SL ONE (06:00)
[2021-09-12] MEDS ORDERED: methaDONE HCL 10 MG TABLET (FOR DETOX USE ONLY) PO ONE (10:00)
== END 2021-09-11 20:00 | disposition left against medical advice (07) | DRG 770 ==
LOC: YASAS 09:04 → Y3N 10:51
PROVIDERS: ADMIT Allergy & Immunology; ATTEND Allergy & Immunology
PROC: HZ2ZZZZ Detoxification Services for Substance Abuse Treatment (ICD-10-PCS; principal; 2021-09-08)
DX: F11.23 Opioid dependence with withdrawal (principal); F14.20 Cocaine dependence, uncomplicated; F13.20 Sedative, hypnotic or anxiolytic dependence, uncomplicated; F17.210 Nicotine dependence, cigarettes, uncomplicated; U07.1 COVID-19
CPT/HCPCS: 36415; 80053; 85027; 86780; 87389; C9803; J0735; U0003; U0005

== ENCOUNTER 2021-09-22 03:44 | Inpatient (IN) | payer OTHER ==
[2021-09-22 04:11] VITALS: BMI 23.6
[2021-09-22] MEDS ORDERED: P-EPHED 60MG/TRIPROLIDI 2.5MG TABLET PO PRN (04:45)
[2021-09-22] MEDS ORDERED: ACETAMINOPHEN 325 MG TABLET (FP) PO PRN ×2 (04:45)
[2021-09-22] MEDS ORDERED: MENTHOL/PHENOL 1 EACH UD MM PRN (04:45)
[2021-09-22] MEDS ORDERED: guaiFENesin 200 MG/10 ML 10 ML UNIT-DOSE CUPS PO PRN (04:45)
[2021-09-22] MEDS ORDERED: MAGNESIUM HYDROX 2400MG/30ML ORAL SUSPENSION 30 ML CUP PO PRN (04:45)
[2021-09-22] MEDS ORDERED: NALOXONE HCL 0.4 MG/ML VIAL IM PRN (04:45)
[2021-09-22] MEDS ORDERED: DICYCLOMINE HCL 10 MG CAPSULE PO PRN (04:45)
[2021-09-22] MEDS ORDERED: MAG HYDROX/AL HYDROX/SIMETH 30 ML UNIT-DOSE CUP PO PRN (04:45)
[2021-09-22] MEDS ORDERED: IBUPROFEN 400 MG TABLET (FP) PO PRN (04:45)
[2021-09-22] MEDS ORDERED: NALOXONE (NARCAN) HCL 4 MG/0.1 ML SPRAY NS PRN (04:45)
[2021-09-22] MEDS ORDERED: BISMUTH SUBSALICYLATE 524 MG/30 ML PO PRN (04:45)
[2021-09-22] MEDS ORDERED: ONDANSETRON *ODT* 4 MG TABLET SL PRN (04:45)
[2021-09-22] MEDS ORDERED: MAGNESIUM CITRATE 300 ML BOTTLE PO PRN (04:45)
[2021-09-22] MEDS ORDERED: LOPERAMIDE HCL 2 MG CAPSULE PO PRN (04:45)
[2021-09-22] MEDS ORDERED: NICOTINE 21 MG/24 HOURS TOPICAL PATCH TD SCH (10:00)
[2021-09-22] MEDS ORDERED: methaDONE HCL 10 MG TABLET (FOR DETOX USE ONLY) PO ONE (10:30)
[2021-09-22] MEDS: PRENATAL VITAMINS W/ FOLIC ACID TABLET (FP) PO SCH (10:34)
[2021-09-22] MEDS: diazePAM 5 MG TABLET PO PRN ×3 (10:34→22:05)
[2021-09-22] MEDS: METHOCARBAMOL 500 MG TABLET PO PRN ×2 (10:34→22:06)
[2021-09-22] MEDS: NICOTINE POLACRILEX 2 MG GUM BUC PRN ×2 (10:38→19:30)
[2021-09-22 16:45] LABS: CALCIUM 8.4 mg/dL (8.5-10.1)
[2021-09-22 16:46] LABS: BLOOD UREA NITROGEN 29.9 mg/dL (7-18)
[2021-09-22 16:49] LABS: CREATININE 1.2 mg/dL (0.55-1.3)
[2021-09-22 16:51] LABS: BILIRUBIN,TOTAL 0.5 mg/dL (0.2-1)
[2021-09-22] MEDS: NICOTINE 10 MG CARTRIDGE (INHALER) IH PRN (19:47)
[2021-09-22] MEDS: MELATONIN 5 MG TABLETS PO SCH (22:05)
[2021-09-22] MEDS: THIAMINE HCL 100 MG TABLET (FP) PO SCH (22:05)
[2021-09-22] MEDS: hydrOXYzine PAMOATE 25 MG CAPSULE (FP) PO PRN (22:05)
[2021-09-23] MEDS ORDERED: methaDONE HCL 10 MG TABLET (FOR DETOX USE ONLY) ONE (09:03)
[2021-09-23 09:22] LABS: HEMATOCRIT 36.6 % (35.4-49); HEMOGLOBIN 12.6 GM/dL (11.7-16.9); MCH 31.3 pg (25.7-33.7); MCHC 34.3 g/dl (32.0-35.9); MEAN CELL VOLUME 91.1 fl (80-96); MEAN PLT VOLUME 7.9 fl (7.5-11.1); PLATELET COUNT 328 10^3/uL (134-434); RBC 4.02 M/mm3 (4.00-5.60); RDW 13.6 % (11.9-15.9); WHITE BLOOD COUNT 7.9 K/mm3 (4.0-10.0)
[2021-09-23 09:33] LABS: ALBUMIN 2.6 g/dl (3.4-5.0); BLOOD UREA NITROGEN 19.2 mg/dL (7-18); CALCIUM 8.2 mg/dL (8.5-10.1)
[2021-09-23 09:37] LABS: CREATININE 0.8 mg/dL (0.55-1.3)
[2021-09-23 09:38] LABS: BILIRUBIN,TOTAL 0.6 mg/dL (0.2-1); TOT PROT 5.5 g/dl (6.4-8.2)
[2021-09-23] MEDS: PRENATAL VITAMINS W/ FOLIC ACID TABLET (FP) PO SCH (10:14)
[2021-09-23] MEDS: diazePAM 5 MG TABLET PO PRN ×3 (10:16→22:38)
[2021-09-23] MEDS: METHOCARBAMOL 500 MG TABLET PO PRN ×2 (10:17→22:37)
[2021-09-23] MEDS: NICOTINE 10 MG CARTRIDGE (INHALER) IH PRN ×2 (10:24→15:22)
[2021-09-23] MEDS: NICOTINE POLACRILEX 2 MG GUM BUC PRN ×2 (12:39→18:02)
[2021-09-23] MEDS: cloNIDine HCL 0.1 MG TABLET PO PRN (19:43)
[2021-09-23] MEDS: MELATONIN 5 MG TABLETS PO SCH (22:36)
[2021-09-23] MEDS: THIAMINE HCL 100 MG TABLET (FP) PO SCH (22:36)
[2021-09-23] MEDS: hydrOXYzine PAMOATE 25 MG CAPSULE (FP) PO PRN (22:37)
[2021-09-24 08:10] LABS: SARS-CoV-2 NAA Not Detected (Not Detected)
[2021-09-24] MEDS: NICOTINE 10 MG CARTRIDGE (INHALER) IH PRN ×4 (08:31→22:05)
[2021-09-24] MEDS: NICOTINE POLACRILEX 2 MG GUM BUC PRN ×4 (08:32→19:51)
[2021-09-24] MEDS ORDERED: methaDONE HCL 10 MG TABLET (FOR DETOX USE ONLY) PO ONE (10:00)
[2021-09-24] MEDS: diazePAM 5 MG TABLET PO PRN ×3 (10:29→22:06)
[2021-09-24] MEDS: PRENATAL VITAMINS W/ FOLIC ACID TABLET (FP) PO SCH (10:29)
[2021-09-24] MEDS: METHOCARBAMOL 500 MG TABLET PO PRN (10:47)
[2021-09-24] MEDS: cloNIDine HCL 0.1 MG TABLET PO PRN (13:51)
[2021-09-24] MEDS: THIAMINE HCL 100 MG TABLET (FP) PO SCH (22:06)
[2021-09-24] MEDS: MELATONIN 5 MG TABLETS PO SCH (22:06)
[2021-09-25] MEDS: diazePAM 5 MG TABLET PO PRN ×4 (04:09→21:08)
[2021-09-25] MEDS: hydrOXYzine PAMOATE 25 MG CAPSULE (FP) PO PRN ×2 (04:09→22:22)
[2021-09-25] MEDS ORDERED: methaDONE HCL 10 MG TABLET (FOR DETOX USE ONLY) ONE (09:40)
[2021-09-25] MEDS: METHOCARBAMOL 500 MG TABLET PO PRN ×2 (10:04→21:12)
[2021-09-25] MEDS: PRENATAL VITAMINS W/ FOLIC ACID TABLET (FP) PO SCH (10:04)
[2021-09-25] MEDS: NICOTINE POLACRILEX 2 MG GUM BUC PRN ×3 (10:11→21:13)
[2021-09-25] MEDS: NICOTINE 10 MG CARTRIDGE (INHALER) IH PRN ×2 (11:59→18:18)
[2021-09-25] MEDS: MELATONIN 5 MG TABLETS PO SCH (21:08)
[2021-09-25] MEDS: THIAMINE HCL 100 MG TABLET (FP) PO SCH (21:08)
[2021-09-26] MEDS: diazePAM 5 MG TABLET PO PRN (05:31)
[2021-09-26] MEDS: METHOCARBAMOL 500 MG TABLET PO PRN (05:33)
[2021-09-26] MEDS: NICOTINE 10 MG CARTRIDGE (INHALER) IH PRN (05:34)
[2021-09-26] MEDS: NICOTINE POLACRILEX 2 MG GUM BUC PRN (05:36)
[2021-09-26] MEDS ORDERED: methaDONE HCL 10 MG TABLET (FOR DETOX USE ONLY) PO ONE ×2 (06:00→10:00)
[2021-09-26 09:20] VITALS: BP 148/71; PULSE 96; TEMP 97.9
[2021-09-26] MEDS: PRENATAL VITAMINS W/ FOLIC ACID TABLET (FP) PO SCH (10:09)
== END 2021-09-26 10:52 | disposition home or self-care (01) | DRG 773 ==
LOC: YASAS 03:44 → UNDOADMIN 04:57 → Y3N 04:57
PROVIDERS: ADMIT Allergy & Immunology; ATTEND Allergy & Immunology
PROC: HZ2ZZZZ Detoxification Services for Substance Abuse Treatment (ICD-10-PCS; principal; 2021-09-22)
DX: F11.23 Opioid dependence with withdrawal (principal); F14.20 Cocaine dependence, uncomplicated; F13.20 Sedative, hypnotic or anxiolytic dependence, uncomplicated; F12.10 Cannabis abuse, uncomplicated; F17.210 Nicotine dependence, cigarettes, uncomplicated; F19.282 Other psychoactive substance dependence with psychoactive substance-induced sleep disorder; F19.24 Other psychoactive substance dependence with psychoactive substance-induced mood disorder; Z62.810 Personal history of physical and sexual abuse in childhood; R63.4 Abnormal weight loss; Z68.23 Body mass index [BMI] 23.0-23.9, adult; Z86.19 Personal history of other infectious and parasitic diseases; Z91.14 Patient's other noncompliance with medication regimen; Z59.00 Homelessness unspecified
CPT/HCPCS: 36415; 80053; 85027; 86780; 87811; C9803; J0735; U0003; U0005

== ENCOUNTER 2021-10-05 10:17 | Inpatient (IN) | payer OTHER ==
[2021-10-05 10:48] VITALS: BMI 22.9
[2021-10-05] MEDS ORDERED: MAG HYDROX/AL HYDROX/SIMETH 30 ML UNIT-DOSE CUP PO PRN (12:59)
[2021-10-05] MEDS ORDERED: IBUPROFEN 400 MG TABLET (FP) PO PRN (12:59)
[2021-10-05] MEDS ORDERED: MAGNESIUM HYDROX 2400MG/30ML ORAL SUSPENSION 30 ML CUP PO PRN (12:59)
[2021-10-05] MEDS ORDERED: LOPERAMIDE HCL 2 MG CAPSULE PO PRN (12:59)
[2021-10-05] MEDS ORDERED: ACETAMINOPHEN 325 MG TABLET (FP) PO PRN ×2 (12:59)
[2021-10-05] MEDS ORDERED: MENTHOL/PHENOL 1 EACH UD MM PRN (12:59)
[2021-10-05] MEDS ORDERED: methaDONE HCL 10 MG TABLET (FOR DETOX USE ONLY) PO ONE (12:59)
[2021-10-05] MEDS ORDERED: BISMUTH SUBSALICYLATE 524 MG/30 ML PO PRN (12:59)
[2021-10-05] MEDS ORDERED: ONDANSETRON *ODT* 4 MG TABLET SL PRN (12:59)
[2021-10-05] MEDS ORDERED: MAGNESIUM CITRATE 300 ML BOTTLE PO PRN (12:59)
[2021-10-05] MEDS: hydrOXYzine PAMOATE 25 MG CAPSULE (FP) PO SCH ×3 (14:20→22:16)
[2021-10-05] MEDS: METHOCARBAMOL 500 MG TABLET PO PRN ×2 (14:45→22:16)
[2021-10-05] MEDS: diazePAM 5 MG TABLET PO PRN (14:45)
[2021-10-05] MEDS: diazePAM 5 MG TABLET PO SCH ×2 (18:13→22:16)
[2021-10-05] MEDS: MELATONIN 5 MG TABLETS PO SCH (22:16)
[2021-10-05] MEDS: cloNIDine HCL 0.1 MG TABLET PO PRN (22:16)
[2021-10-05] MEDS: THIAMINE HCL 100 MG TABLET (FP) PO SCH (22:16)
[2021-10-06] MEDS: hydrOXYzine PAMOATE 25 MG CAPSULE (FP) PO SCH ×5 (05:33→22:12)
[2021-10-06] MEDS: diazePAM 5 MG TABLET PO SCH ×4 (05:33→22:12)
[2021-10-06] MEDS: METHOCARBAMOL 500 MG TABLET PO PRN ×2 (05:34→13:44)
[2021-10-06] MEDS ORDERED: methaDONE HCL 10 MG TABLET (FOR DETOX USE ONLY) ONE (09:20)
[2021-10-06] MEDS: cloNIDine HCL 0.1 MG TABLET PO PRN ×2 (10:22→22:16)
[2021-10-06] MEDS: PRENATAL VITAMINS W/ FOLIC ACID TABLET (FP) PO SCH (10:22)
[2021-10-06 11:28] LABS: HEMATOCRIT 37.6 % (35.4-49); HEMOGLOBIN 12.4 GM/dL (11.7-16.9); MCH 30.5 pg (25.7-33.7); MCHC 32.9 g/dl (32.0-35.9); MEAN CELL VOLUME 92.7 fl (80-96); MEAN PLT VOLUME 8.2 fl (7.5-11.1); PLATELET COUNT 321 10^3/uL (134-434); RBC 4.05 M/mm3 (4.00-5.60); RDW 14.2 % (11.9-15.9); WHITE BLOOD COUNT 7.8 K/mm3 (4.0-10.0)
[2021-10-06 11:37] LABS: BLOOD UREA NITROGEN 15.4 mg/dL (7-18)
[2021-10-06 11:40] LABS: CREATININE 0.8 mg/dL (0.55-1.3)
[2021-10-06 11:42] LABS: BILIRUBIN,TOTAL 0.6 mg/dL (0.2-1); TOT PROT 6.3 g/dl (6.4-8.2)
[2021-10-06] MEDS: NICOTINE 10 MG CARTRIDGE (INHALER) IH PRN ×2 (15:57→22:11)
[2021-10-06] MEDS: diazePAM 5 MG TABLET PO PRN ×2 (16:09→20:19)
[2021-10-06] MEDS: THIAMINE HCL 100 MG TABLET (FP) PO SCH (22:12)
[2021-10-06] MEDS: MELATONIN 5 MG TABLETS PO SCH (22:12)
[2021-10-07] MEDS: diazePAM 5 MG TABLET PO SCH ×3 (05:54→22:04)
[2021-10-07] MEDS: hydrOXYzine PAMOATE 25 MG CAPSULE (FP) PO SCH ×5 (05:55→22:04)
[2021-10-07] MEDS: diazePAM 5 MG TABLET PO PRN ×3 (08:47→19:59)
[2021-10-07] MEDS ORDERED: methaDONE HCL 10 MG TABLET (FOR DETOX USE ONLY) PO ONE (10:00)
[2021-10-07] MEDS: PRENATAL VITAMINS W/ FOLIC ACID TABLET (FP) PO SCH (10:28)
[2021-10-07] MEDS: METHOCARBAMOL 500 MG TABLET PO PRN (10:28)
[2021-10-07] MEDS: NICOTINE 10 MG CARTRIDGE (INHALER) IH PRN ×2 (10:28→19:42)
[2021-10-07] MEDS: cloNIDine HCL 0.1 MG TABLET PO PRN ×2 (10:50→20:12)
[2021-10-07 14:07] LABS: SARS-CoV-2 NAA Not Detected (Not Detected)
[2021-10-07] MEDS: THIAMINE HCL 100 MG TABLET (FP) PO SCH (22:04)
[2021-10-07] MEDS: MELATONIN 5 MG TABLETS PO SCH (22:04)
[2021-10-08] MEDS: hydrOXYzine PAMOATE 25 MG CAPSULE (FP) PO SCH ×5 (05:44→22:10)
[2021-10-08] MEDS: diazePAM 5 MG TABLET PO SCH ×2 (05:45→17:27)
[2021-10-08] MEDS: diazePAM 5 MG TABLET PO PRN (07:50)
[2021-10-08] MEDS: PRENATAL VITAMINS W/ FOLIC ACID TABLET (FP) PO SCH (10:14)
[2021-10-08] MEDS ORDERED: methaDONE HCL 10 MG TABLET (FOR DETOX USE ONLY) ONE (10:16)
[2021-10-08] MEDS: METHOCARBAMOL 500 MG TABLET PO PRN ×2 (10:18→22:12)
[2021-10-08] MEDS: NICOTINE POLACRILEX 4 MG GUM BUC PRN ×3 (10:21→18:46)
[2021-10-08] MEDS: cloNIDine HCL 0.1 MG TABLET PO PRN ×3 (12:14→22:12)
[2021-10-08] MEDS: MELATONIN 5 MG TABLETS PO SCH (22:10)
[2021-10-08] MEDS: THIAMINE HCL 100 MG TABLET (FP) PO SCH (22:10)
[2021-10-09] MEDS ORDERED: diazePAM 5 MG TABLET PO ONE (06:00)
[2021-10-09] MEDS: hydrOXYzine PAMOATE 25 MG CAPSULE (FP) PO SCH ×3 (07:43→15:00)
[2021-10-09] MEDS ORDERED: methaDONE HCL 10 MG TABLET (FOR DETOX USE ONLY) PO ONE (10:00)
[2021-10-09] MEDS: PRENATAL VITAMINS W/ FOLIC ACID TABLET (FP) PO SCH (10:18)
[2021-10-09] MEDS ORDERED: NICOTINE 10 MG CARTRIDGE (INHALER) IH SCH (10:45)
[2021-10-09] MEDS: METHOCARBAMOL 500 MG TABLET PO PRN (10:56)
[2021-10-09] MEDS: cloNIDine HCL 0.1 MG TABLET PO PRN (10:56)
[2021-10-09] MEDS: NICOTINE POLACRILEX 4 MG GUM BUC PRN ×2 (12:41→16:02)
[2021-10-09 17:36] VITALS: BP 135/77; PULSE 93; TEMP 98.6
== END 2021-10-09 18:10 | disposition home or self-care (01) | DRG 773 ==
LOC: YASAS 10:17 → Y3N 12:39
PROVIDERS: ADMIT Allergy & Immunology; ATTEND Allergy & Immunology
PROC: HZ2ZZZZ Detoxification Services for Substance Abuse Treatment (ICD-10-PCS; principal; 2021-10-05)
DX: F11.23 Opioid dependence with withdrawal (principal); F14.20 Cocaine dependence, uncomplicated; F13.10 Sedative, hypnotic or anxiolytic abuse, uncomplicated; F17.210 Nicotine dependence, cigarettes, uncomplicated
CPT/HCPCS: 36415; 80053; 85027; 86780; 87811; C9803; J0735; U0003; U0005

== ENCOUNTER 2021-11-11 12:12 | Inpatient (IN) | payer OTHER ==
[2021-11-11] MEDS ORDERED: ONDANSETRON *ODT* 4 MG TABLET SL PRN (13:13)
[2021-11-11] MEDS ORDERED: MAG HYDROX/AL HYDROX/SIMETH 30 ML UNIT-DOSE CUP PO PRN (13:13)
[2021-11-11] MEDS ORDERED: DICYCLOMINE HCL 10 MG CAPSULE PO PRN (13:13)
[2021-11-11] MEDS ORDERED: MAGNESIUM CITRATE 300 ML BOTTLE PO PRN (13:13)
[2021-11-11] MEDS ORDERED: IBUPROFEN 400 MG TABLET (FP) PO PRN (13:13)
[2021-11-11] MEDS ORDERED: methaDONE HCL 10 MG TABLET (FOR DETOX USE ONLY) PO ONE ×2 (13:13→17:30)
[2021-11-11] MEDS ORDERED: MAGNESIUM HYDROX 2400MG/30ML ORAL SUSPENSION 30 ML CUP PO PRN (13:13)
[2021-11-11] MEDS ORDERED: BISMUTH SUBSALICYLATE 262 MG/15 ML BTL PO PRN (13:13)
[2021-11-11] MEDS ORDERED: ACETAMINOPHEN 325 MG TABLET (FP) PO PRN ×2 (13:13)
[2021-11-11] MEDS ORDERED: NALOXONE HCL (KLOXXADO) 8 MG SPRAY NS PRN (13:13)
[2021-11-11] MEDS ORDERED: BENZOCAINE/MENTHOL (CHLORASEPTIC ) LOZENGE MM PRN (13:13)
[2021-11-11] MEDS ORDERED: LOPERAMIDE HCL 2 MG CAPSULE PO PRN (13:13)
[2021-11-11 15:14] VITALS: BMI 23.5
[2021-11-11] MEDS: hydrOXYzine PAMOATE 25 MG CAPSULE (FP) PO SCH ×2 (17:23→23:20)
[2021-11-11] MEDS: diazePAM 5 MG TABLET PO PRN (17:24)
[2021-11-11] MEDS: METHOCARBAMOL 500 MG TABLET PO PRN (17:35)
[2021-11-11] MEDS: MELATONIN 5 MG TABLETS PO SCH (23:20)
[2021-11-11] MEDS: THIAMINE HCL 100 MG TABLET (FP) PO SCH (23:20)
[2021-11-12] MEDS: diazePAM 5 MG TABLET PO PRN ×3 (05:31→22:13)
[2021-11-12] MEDS: hydrOXYzine PAMOATE 25 MG CAPSULE (FP) PO SCH ×5 (05:31→22:12)
[2021-11-12] MEDS: NICOTINE 10 MG CARTRIDGE (INHALER) IH PRN ×3 (05:32→22:49)
[2021-11-12] MEDS ORDERED: methaDONE HCL 10 MG TABLET (FOR DETOX USE ONLY) ONE (09:46)
[2021-11-12] MEDS: METHOCARBAMOL 500 MG TABLET PO PRN ×2 (10:13→22:13)
[2021-11-12] MEDS: PRENATAL VITAMINS W/ FOLIC ACID TABLET (FP) PO SCH (10:16)
[2021-11-12 10:48] LABS: ALBUMIN 3.3 g/dl (3.4-5.0)
[2021-11-12 10:49] LABS: BLOOD UREA NITROGEN 23.6 mg/dL (7-18)
[2021-11-12 10:50] LABS: CALCIUM 9.1 mg/dL (8.5-10.1); HEMATOCRIT 38.7 % (35.4-49); HEMOGLOBIN 12.9 GM/dL (11.7-16.9); MCH 30.5 pg (25.7-33.7); MCHC 33.2 g/dl (32.0-35.9); MEAN CELL VOLUME 91.7 fl (80-96); MEAN PLT VOLUME 8.9 fl (7.5-11.1); PLATELET COUNT 346 10^3/uL (134-434); RBC 4.22 M/mm3 (4.00-5.60); RDW 12.9 % (11.9-15.9); WHITE BLOOD COUNT 10.3 K/mm3 (4.0-10.0)
[2021-11-12 10:51] LABS: CREATININE 1.1 mg/dL (0.55-1.3)
[2021-11-12 10:53] LABS: BILIRUBIN,TOTAL 0.7 mg/dL (0.2-1); TOT PROT 6.9 g/dl (6.4-8.2)
[2021-11-12] MEDS: cloNIDine HCL 0.1 MG TABLET PO PRN (11:36)
[2021-11-12] MEDS: THIAMINE HCL 100 MG TABLET (FP) PO SCH (22:12)
[2021-11-12] MEDS: MELATONIN 5 MG TABLETS PO SCH (22:12)
[2021-11-12] MEDS: NICOTINE POLACRILEX 4 MG GUM BUC PRN (22:17)
[2021-11-13] MEDS: hydrOXYzine PAMOATE 25 MG CAPSULE (FP) PO SCH ×4 (05:43→22:10)
[2021-11-13] MEDS: diazePAM 5 MG TABLET PO PRN ×3 (05:43→22:08)
[2021-11-13] MEDS: cloNIDine HCL 0.1 MG TABLET PO PRN ×2 (08:51→17:37)
[2021-11-13] MEDS ORDERED: methaDONE HCL 10 MG TABLET (FOR DETOX USE ONLY) PO ONE (10:00)
[2021-11-13] MEDS: NICOTINE POLACRILEX 4 MG GUM BUC PRN ×4 (10:08→22:12)
[2021-11-13] MEDS: NICOTINE 10 MG CARTRIDGE (INHALER) IH PRN ×3 (10:08→21:10)
[2021-11-13] MEDS: METHOCARBAMOL 500 MG TABLET PO PRN ×2 (10:09→22:08)
[2021-11-13] MEDS: PRENATAL VITAMINS W/ FOLIC ACID TABLET (FP) PO SCH (10:09)
[2021-11-13 14:08] LABS: SARS-CoV-2 NAA Not Detected (Not Detected)
[2021-11-13] MEDS: THIAMINE HCL 100 MG TABLET (FP) PO SCH (22:09)
[2021-11-13] MEDS: MELATONIN 5 MG TABLETS PO SCH (22:09)
[2021-11-14] MEDS: hydrOXYzine PAMOATE 25 MG CAPSULE (FP) PO SCH ×4 (01:06→14:49)
[2021-11-14] MEDS: METHOCARBAMOL 500 MG TABLET PO PRN ×2 (05:18→14:32)
[2021-11-14] MEDS: NICOTINE 10 MG CARTRIDGE (INHALER) IH PRN ×2 (08:54→12:54)
[2021-11-14] MEDS ORDERED: methaDONE HCL 10 MG TABLET (FOR DETOX USE ONLY) ONE (09:06)
[2021-11-14] MEDS: PRENATAL VITAMINS W/ FOLIC ACID TABLET (FP) PO SCH (10:44)
[2021-11-14] MEDS: NICOTINE POLACRILEX 4 MG GUM BUC PRN (12:20)
[2021-11-14 17:02] VITALS: BP 146/74; PULSE 102; TEMP 98.5
[2021-11-15] MEDS ORDERED: methaDONE HCL 10 MG TABLET (FOR DETOX USE ONLY) PO ONE (10:00)
== END 2021-11-14 17:24 | disposition left against medical advice (07) | DRG 770 ==
LOC: YASAS 12:12 → Y3N 16:44
PROVIDERS: ADMIT Allergy & Immunology; ATTEND Allergy & Immunology
PROC: HZ2ZZZZ Detoxification Services for Substance Abuse Treatment (ICD-10-PCS; principal; 2021-11-11)
DX: F11.23 Opioid dependence with withdrawal (principal); F13.20 Sedative, hypnotic or anxiolytic dependence, uncomplicated; F14.20 Cocaine dependence, uncomplicated; F12.20 Cannabis dependence, uncomplicated; F17.210 Nicotine dependence, cigarettes, uncomplicated; F19.24 Other psychoactive substance dependence with psychoactive substance-induced mood disorder; F32.A Depression, unspecified; F43.10 Post-traumatic stress disorder, unspecified; Z62.810 Personal history of physical and sexual abuse in childhood; Z59.02 Unsheltered homelessness
CPT/HCPCS: 36415; 80053; 85027; 86780; C9803-CS; J0735; U0003; U0005

== ENCOUNTER 2022-01-03 08:28 | Inpatient (IN) | payer OTHER ==
[2022-01-03] MEDS ORDERED: MAGNESIUM CITRATE 300 ML BOTTLE PO PRN (12:05)
[2022-01-03] MEDS ORDERED: DICYCLOMINE HCL 10 MG CAPSULE PO PRN (12:05)
[2022-01-03] MEDS ORDERED: clonazePAM 0.5 MG ODT TABLETS SL PRN (12:05)
[2022-01-03] MEDS ORDERED: BENZOCAINE/MENTHOL (CHLORASEPTIC ) LOZENGE MM PRN (12:05)
[2022-01-03] MEDS ORDERED: BISMUTH SUBSALICYLATE 524 MG/30 ML PO PRN (12:05)
[2022-01-03] MEDS ORDERED: ACETAMINOPHEN 325 MG TABLET (FP) PO PRN ×2 (12:05)
[2022-01-03] MEDS ORDERED: MAG HYDROX/AL HYDROX/SIMETH 30 ML UNIT-DOSE CUP PO PRN (12:05)
[2022-01-03] MEDS ORDERED: methaDONE HCL 10 MG TABLET (FOR DETOX USE ONLY) PO ONE (12:05)
[2022-01-03] MEDS ORDERED: MAGNESIUM HYDROX 2400MG/30ML ORAL SUSPENSION 30 ML CUP PO PRN (12:05)
[2022-01-03] MEDS ORDERED: IBUPROFEN 400 MG TABLET (FP) PO PRN (12:05)
[2022-01-03] MEDS ORDERED: ONDANSETRON *ODT* 4 MG TABLET SL PRN (12:05)
[2022-01-03] MEDS ORDERED: LOPERAMIDE HCL 2 MG CAPSULE PO PRN (12:05)
[2022-01-03] MEDS ORDERED: NICOTINE 10 MG CARTRIDGE (INHALER) IH PRN (12:05)
[2022-01-03 12:18] VITALS: BMI 22.9
[2022-01-03] MEDS ORDERED: methaDONE HCL 10 MG TABLET (FOR DETOX USE ONLY) ONE (16:26)
[2022-01-03] MEDS: hydrOXYzine PAMOATE 25 MG CAPSULE (FP) PO SCH ×3 (16:37→22:58)
[2022-01-03] MEDS: PRENATAL VITAMINS W/ FOLIC ACID TABLET (FP) PO SCH (16:37)
[2022-01-03] MEDS: MELATONIN 5 MG TABLETS PO SCH (22:58)
[2022-01-03] MEDS: THIAMINE HCL 100 MG TABLET (FP) PO SCH (22:58)
[2022-01-03] MEDS: METHOCARBAMOL 500 MG TABLET PO PRN (23:01)
[2022-01-03] MEDS: cloNIDine HCL 0.1 MG TABLET PO PRN (23:01)
[2022-01-03] MEDS: IBUPROFEN 600 MG TABLET (FP) PO PRN (23:01)
[2022-01-04] MEDS: hydrOXYzine PAMOATE 25 MG CAPSULE (FP) PO SCH ×5 (06:26→22:05)
[2022-01-04] MEDS ORDERED: methaDONE HCL 10 MG TABLET (FOR DETOX USE ONLY) ONE (09:36)
[2022-01-04] MEDS: PRENATAL VITAMINS W/ FOLIC ACID TABLET (FP) PO SCH (10:11)
[2022-01-04] MEDS: METHOCARBAMOL 500 MG TABLET PO PRN ×2 (10:11→22:05)
[2022-01-04] MEDS: NICOTINE POLACRILEX 4 MG GUM BUC PRN ×2 (10:12→13:55)
[2022-01-04 10:47] LABS: HEMATOCRIT 38.3 % (35.4-49); HEMOGLOBIN 12.9 GM/dL (11.7-16.9); MCH 30.7 pg (25.7-33.7); MCHC 33.6 g/dl (32.0-35.9); MEAN CELL VOLUME 91.3 fl (80-96); MEAN PLT VOLUME 7.9 fl (7.5-11.1); PLATELET COUNT 292 10^3/uL (134-434); RDW 13.8 % (11.9-15.9); WHITE BLOOD COUNT 7.5 K/mm3 (4.0-10.0)
[2022-01-04 10:54] LABS: CALCIUM 8.6 mg/dL (8.5-10.1)
[2022-01-04 10:55] LABS: ALBUMIN 2.9 g/dl (3.4-5.0); BLOOD UREA NITROGEN 16.1 mg/dL (7-18)
[2022-01-04 10:57] LABS: CREATININE 0.9 mg/dL (0.55-1.3)
[2022-01-04 10:59] LABS: TOT PROT 6.3 g/dl (6.4-8.2)
[2022-01-04 11:00] LABS: BILIRUBIN,TOTAL 0.4 mg/dL (0.2-1)
[2022-01-04] MEDS: cloNIDine HCL 0.1 MG TABLET PO PRN ×2 (12:50→22:05)
[2022-01-04] MEDS: THIAMINE HCL 100 MG TABLET (FP) PO SCH (22:05)
[2022-01-04] MEDS: IBUPROFEN 600 MG TABLET (FP) PO PRN (22:05)
[2022-01-04] MEDS: MELATONIN 5 MG TABLETS PO SCH (22:05)
[2022-01-05] MEDS: hydrOXYzine PAMOATE 25 MG CAPSULE (FP) PO SCH ×3 (06:43→13:55)
[2022-01-05 08:38] VITALS: TEMP 96.9
[2022-01-05] MEDS ORDERED: methaDONE HCL 10 MG TABLET (FOR DETOX USE ONLY) PO ONE (10:00)
[2022-01-05] MEDS: cloNIDine HCL 0.1 MG TABLET PO PRN (10:04)
[2022-01-05] MEDS: METHOCARBAMOL 500 MG TABLET PO PRN (10:04)
[2022-01-05] MEDS: PRENATAL VITAMINS W/ FOLIC ACID TABLET (FP) PO SCH (10:05)
[2022-01-05 11:48] VITALS: BP 130/82; PULSE 63
[2022-01-07] MEDS ORDERED: methaDONE HCL 10 MG TABLET (FOR DETOX USE ONLY) PO ONE (10:00)
== END 2022-01-05 11:45 | disposition short-term general hospital (02) | DRG 773 ==
LOC: YASAS 08:28 → Y3N 14:37
PROVIDERS: ADMIT Allergy & Immunology; ATTEND Surgery
PROC: HZ2ZZZZ Detoxification Services for Substance Abuse Treatment (ICD-10-PCS; principal; 2022-01-03)
DX: F11.23 Opioid dependence with withdrawal (principal); F14.20 Cocaine dependence, uncomplicated; F17.210 Nicotine dependence, cigarettes, uncomplicated; F43.10 Post-traumatic stress disorder, unspecified; R73.9 Hyperglycemia, unspecified; R94.5 Abnormal results of liver function studies; R03.0 Elevated blood-pressure reading, without diagnosis of hypertension; S09.8XXA Other specified injuries of head, initial encounter; Y04.2XXA Assault by strike against or bumped into by another person, initial encounter; Y92.238 Other place in hospital as the place of occurrence of the external cause; Z86.16 Personal history of COVID-19
CPT/HCPCS: 36415; 80053; 85027; 86780; 87811; C9803-CS; J0735; U0003; U0005

== ENCOUNTER 2022-02-07 12:12 | Inpatient (IN) | payer OTHER ==
[2022-02-07 13:43] VITALS: BMI 21.2
[2022-02-07] MEDS ORDERED: DICYCLOMINE HCL 10 MG CAPSULE PO PRN (13:44)
[2022-02-07] MEDS ORDERED: methaDONE HCL 10 MG TABLET (FOR DETOX USE ONLY) PO ONE (13:44)
[2022-02-07] MEDS ORDERED: MAGNESIUM CITRATE 300 ML BOTTLE PO PRN (13:44)
[2022-02-07] MEDS ORDERED: BENZOCAINE/MENTHOL (CHLORASEPTIC ) LOZENGE MM PRN (13:44)
[2022-02-07] MEDS ORDERED: IBUPROFEN 600 MG TABLET (FP) PO PRN (13:44)
[2022-02-07] MEDS ORDERED: MAG HYDROX/AL HYDROX/SIMETH 30 ML UNIT-DOSE CUP PO PRN (13:44)
[2022-02-07] MEDS ORDERED: NICOTINE 10 MG CARTRIDGE (INHALER) IH PRN (13:44)
[2022-02-07] MEDS ORDERED: clonazePAM 0.5 MG ODT TABLETS SL PRN (13:44)
[2022-02-07] MEDS ORDERED: ACETAMINOPHEN 325 MG TABLET (FP) PO PRN ×2 (13:44)
[2022-02-07] MEDS ORDERED: MAGNESIUM HYDROX 2400MG/30ML ORAL SUSPENSION 30 ML CUP PO PRN (13:44)
[2022-02-07] MEDS ORDERED: ONDANSETRON *ODT* 4 MG TABLET SL PRN (13:44)
[2022-02-07] MEDS ORDERED: IBUPROFEN 400 MG TABLET (FP) PO PRN (13:44)
[2022-02-07] MEDS ORDERED: BISMUTH SUBSALICYLATE 524 MG/30 ML PO PRN (13:44)
[2022-02-07] MEDS ORDERED: LOPERAMIDE HCL 2 MG CAPSULE PO PRN (13:44)
[2022-02-07] MEDS ORDERED: NICOTINE POLACRILEX 4 MG GUM BUC PRN (13:44)
[2022-02-07] MEDS: hydrOXYzine PAMOATE 25 MG CAPSULE (FP) PO SCH ×3 (16:58→22:32)
[2022-02-07] MEDS: cloNIDine HCL 0.1 MG TABLET PO PRN (16:59)
[2022-02-07] MEDS: METHOCARBAMOL 500 MG TABLET PO PRN (22:32)
[2022-02-07] MEDS: MELATONIN 5 MG TABLETS PO SCH (22:32)
[2022-02-07] MEDS: THIAMINE HCL 100 MG TABLET (FP) PO SCH (22:33)
[2022-02-08] MEDS: hydrOXYzine PAMOATE 25 MG CAPSULE (FP) PO SCH ×6 (06:38→23:18)
[2022-02-08 09:06] LABS: HEMATOCRIT 36.8 % (35.4-49); HEMOGLOBIN 12.9 GM/dL (11.7-16.9); MCH 31.3 pg (25.7-33.7); MEAN CELL VOLUME 89.6 fl (80-96); MEAN PLT VOLUME 8.2 fl (7.5-11.1); PLATELET COUNT 336 10^3/uL (134-434); RBC 4.11 M/mm3 (4.00-5.60); RDW 12.9 % (11.9-15.9)
[2022-02-08] MEDS ORDERED: methaDONE HCL 10 MG TABLET (FOR DETOX USE ONLY) ONE (09:14)
[2022-02-08 09:27] LABS: CALCIUM 9.2 mg/dL (8.5-10.1)
[2022-02-08 09:28] LABS: ALBUMIN 3.1 g/dl (3.4-5.0); BLOOD UREA NITROGEN 15.2 mg/dL (7-18); CREATININE 0.8 mg/dL (0.55-1.3)
[2022-02-08 09:30] LABS: BILIRUBIN,TOTAL 0.5 mg/dL (0.2-1); TOT PROT 6.5 g/dl (6.4-8.2)
[2022-02-08] MEDS: PRENATAL VITAMINS W/ FOLIC ACID TABLET (FP) PO SCH (10:04)
[2022-02-08] MEDS: METHOCARBAMOL 500 MG TABLET PO PRN ×2 (10:04→18:35)
[2022-02-08] MEDS: cloNIDine HCL 0.1 MG TABLET PO PRN (18:35)
[2022-02-08] MEDS: MELATONIN 5 MG TABLETS PO SCH (23:18)
[2022-02-08] MEDS: THIAMINE HCL 100 MG TABLET (FP) PO SCH (23:18)
[2022-02-09] MEDS: METHOCARBAMOL 500 MG TABLET PO PRN (05:44)
[2022-02-09] MEDS: cloNIDine HCL 0.1 MG TABLET PO PRN (05:44)
[2022-02-09] MEDS: hydrOXYzine PAMOATE 25 MG CAPSULE (FP) PO SCH ×3 (05:51→15:23)
[2022-02-09] MEDS ORDERED: methaDONE HCL 10 MG TABLET (FOR DETOX USE ONLY) PO ONE (10:00)
[2022-02-09] MEDS: PRENATAL VITAMINS W/ FOLIC ACID TABLET (FP) PO SCH (10:12)
[2022-02-09 12:33] VITALS: BP 109/63; PULSE 68; TEMP 97.7
[2022-02-11] MEDS ORDERED: methaDONE HCL 10 MG TABLET (FOR DETOX USE ONLY) PO ONE (10:00)
== END 2022-02-09 15:59 | disposition left against medical advice (07) | DRG 770 ==
LOC: YASAS 12:12 → Y3N 16:32
PROVIDERS: ADMIT Allergy & Immunology; ATTEND Surgery
PROC: HZ2ZZZZ Detoxification Services for Substance Abuse Treatment (ICD-10-PCS; principal; 2022-02-07)
DX: F11.23 Opioid dependence with withdrawal (principal); F14.20 Cocaine dependence, uncomplicated; F17.210 Nicotine dependence, cigarettes, uncomplicated; R63.4 Abnormal weight loss; Z68.21 Body mass index [BMI] 21.0-21.9, adult; Z59.02 Unsheltered homelessness
CPT/HCPCS: 36415; 80053; 85027; 86780; C9803-CS; J0735; U0003; U0005

== ENCOUNTER 2022-02-21 15:23 | Inpatient (IN) | payer OTHER ==
[2022-02-21 17:55] VITALS: BMI 22.1
[2022-02-21] MEDS ORDERED: LOPERAMIDE HCL 2 MG CAPSULE PO PRN (18:18)
[2022-02-21] MEDS ORDERED: guaiFENesin 200 MG/10 ML 10 ML UNIT-DOSE CUPS PO PRN (18:18)
[2022-02-21] MEDS ORDERED: BISMUTH SUBSALICYLATE 524 MG/30 ML PO PRN (18:18)
[2022-02-21] MEDS ORDERED: P-EPHED 60MG/TRIPROLIDI 2.5MG TABLET PO PRN (18:18)
[2022-02-21] MEDS ORDERED: ACETAMINOPHEN 325 MG TABLET (FP) PO PRN ×2 (18:18)
[2022-02-21] MEDS ORDERED: ONDANSETRON *ODT* 4 MG TABLET SL PRN (18:18)
[2022-02-21] MEDS ORDERED: NICOTINE 10 MG CARTRIDGE (INHALER) IH PRN (18:18)
[2022-02-21] MEDS ORDERED: MAG HYDROX/AL HYDROX/SIMETH 30 ML UNIT-DOSE CUP PO PRN (18:18)
[2022-02-21] MEDS ORDERED: NICOTINE POLACRILEX 2 MG GUM BUC PRN (18:18)
[2022-02-21] MEDS ORDERED: IBUPROFEN 400 MG TABLET (FP) PO PRN (18:18)
[2022-02-21] MEDS ORDERED: NALOXONE HCL 0.4 MG/ML VIAL IM PRN (18:18)
[2022-02-21] MEDS ORDERED: MAGNESIUM HYDROX 2400MG/30ML ORAL SUSPENSION 30 ML CUP PO PRN (18:18)
[2022-02-21] MEDS ORDERED: DICYCLOMINE HCL 10 MG CAPSULE PO PRN (18:18)
[2022-02-21] MEDS ORDERED: BENZOCAINE/MENTHOL (CHLORASEPTIC ) LOZENGE MM PRN (18:18)
[2022-02-21] MEDS ORDERED: MAGNESIUM CITRATE 300 ML BOTTLE PO PRN (18:18)
[2022-02-21] MEDS ORDERED: NALOXONE HCL (KLOXXADO) 8 MG SPRAY NS PRN (18:18)
[2022-02-21] MEDS ORDERED: IBUPROFEN 600 MG TABLET (FP) PO PRN (18:18)
[2022-02-21] MEDS: THIAMINE HCL 100 MG TABLET (FP) PO SCH (22:59)
[2022-02-21] MEDS: MELATONIN 5 MG TABLETS PO SCH (22:59)
[2022-02-22] MEDS: METHOCARBAMOL 500 MG TABLET PO PRN ×3 (01:54→22:04)
[2022-02-22] MEDS: hydrOXYzine PAMOATE 25 MG CAPSULE (FP) PO PRN ×3 (01:54→22:04)
[2022-02-22 09:03] LABS: HEMATOCRIT 36.8 % (35.4-49); HEMOGLOBIN 12.5 GM/dL (11.7-16.9); MCH 30.7 pg (25.7-33.7); MEAN CELL VOLUME 90.3 fl (80-96); MEAN PLT VOLUME 7.8 fl (7.5-11.1); PLATELET COUNT 308 10^3/uL (134-434); RBC 4.07 M/mm3 (4.00-5.60); RDW 13.3 % (11.9-15.9); WHITE BLOOD COUNT 6.6 K/mm3 (4.0-10.0)
[2022-02-22 09:08] LABS: CALCIUM 8.5 mg/dL (8.5-10.1)
[2022-02-22 09:09] LABS: ALBUMIN 3.1 g/dl (3.4-5.0); BLOOD UREA NITROGEN 27.3 mg/dL (7-18)
[2022-02-22 09:12] LABS: CREATININE 0.8 mg/dL (0.55-1.3)
[2022-02-22 09:14] LABS: BILIRUBIN,TOTAL 0.3 mg/dL (0.2-1); TOT PROT 6.2 g/dl (6.4-8.2)
[2022-02-22] MEDS: NICOTINE 21 MG/24 HOURS TOPICAL PATCH TD SCH (10:14)
[2022-02-22] MEDS: PRENATAL VITAMINS W/ FOLIC ACID TABLET (FP) PO SCH (10:14)
[2022-02-22] MEDS ORDERED: methaDONE HCL 10 MG TABLET (FOR DETOX USE ONLY) PO ONE (10:39)
[2022-02-22] MEDS ORDERED: cloNIDine HCL 0.1 MG TABLET PO PRN (10:39)
[2022-02-22] MEDS: THIAMINE HCL 100 MG TABLET (FP) PO SCH (22:04)
[2022-02-22] MEDS: MELATONIN 5 MG TABLETS PO SCH (22:04)
[2022-02-23] MEDS: METHOCARBAMOL 500 MG TABLET PO PRN (06:09)
[2022-02-23] MEDS ORDERED: methaDONE HCL 10 MG TABLET (FOR DETOX USE ONLY) ONE (09:24)
[2022-02-23] MEDS: hydrOXYzine PAMOATE 25 MG CAPSULE (FP) PO PRN (09:49)
[2022-02-23] MEDS: PRENATAL VITAMINS W/ FOLIC ACID TABLET (FP) PO SCH (09:49)
[2022-02-23] MEDS: NICOTINE 21 MG/24 HOURS TOPICAL PATCH TD SCH (09:51)
[2022-02-23 17:39] VITALS: BP 122/77; PULSE 75; RESP 20; TEMP 98.7
[2022-02-23] MEDS ORDERED: diazePAM 5 MG TABLET PO PRN (18:44)
[2022-02-24] MEDS ORDERED: methaDONE HCL 10 MG TABLET (FOR DETOX USE ONLY) PO ONE (10:00)
[2022-02-26] MEDS ORDERED: methaDONE HCL 10 MG TABLET (FOR DETOX USE ONLY) PO ONE (10:00)
== END 2022-02-23 19:41 | disposition left against medical advice (07) | DRG 770 ==
LOC: YASAS 15:23 → Y3N 20:07
PROVIDERS: ADMIT Allergy & Immunology; ATTEND Surgery
PROC: HZ2ZZZZ Detoxification Services for Substance Abuse Treatment (ICD-10-PCS; principal; 2022-02-21)
DX: F11.23 Opioid dependence with withdrawal (principal); F14.20 Cocaine dependence, uncomplicated; F12.20 Cannabis dependence, uncomplicated; F17.210 Nicotine dependence, cigarettes, uncomplicated; F19.280 Other psychoactive substance dependence with psychoactive substance-induced anxiety disorder; F19.24 Other psychoactive substance dependence with psychoactive substance-induced mood disorder; F41.9 Anxiety disorder, unspecified; F43.10 Post-traumatic stress disorder, unspecified; Z86.16 Personal history of COVID-19; Z59.00 Homelessness unspecified; Z56.0 Unemployment, unspecified; Z91.14 Patient's other noncompliance with medication regimen
CPT/HCPCS: 36415; 80053; 85027; 86780; C9803-CS; U0003; U0005